=== PATIENT | male | born 1945 | race Caucasian/White ===

== ENCOUNTER 2018-10-31 15:02 | Outpatient (CLI) | payer MEDICARE ==
--- NOTE | 2018-10-31 15:21 | RAD ---
EXAM: Chest Two Views 10/31/2018 3:18 PM HISTORY: Dyspnea COMPARISON: Prior exam dated 05/14/2012 FINDINGS: Heart: Cardiomegaly is stable. There is been interval post-CABG change. Pulmonary vessels: Normal. Costophrenic angles: Clear. Lungs: Chronic lung changes are stable. No confluent airspace opacity is evident. Pneumothorax: None. Osseous structures:No acute osseous abnormality. There is scattered degenerative and osteoarthritic c hange present. Additional findings: None. IMPRESSION: Stable mild cardiomegaly. Post-CABG change. No definite acute cardiac pulmonary abnormality.
== END 2018-10-31 15:03 | disposition home or self-care (01) ==
LOC: RAD 15:02
PROVIDERS: ATTEND Internal Medicine Pulmonary Disease
DX: R06.00 Dyspnea, unspecified (principal); I51.7 Cardiomegaly; Z95.1 Presence of aortocoronary bypass graft
CPT/HCPCS: 71046

== ENCOUNTER 2019-02-20 06:48 | Outpatient (CLI) | payer MEDICARE ==
[2019-02-20 13:08] LABS: Hemoglobin 13.8 g/dL (14.0-18.0); Mean Corpuscular HGB CONC 32.8 g/dL (32.0-36.0); Mean Corpuscular Hemoglobin 27.3 pg (27.0-31.0); Mean Corpuscular Volume 83.3 fL (78.0-98.0); Mean Platelet Volume 7.4 fL (7.4-10.4); Platelet Count 290 thou/uL (130-400); RBC Distribution Width 14.4 % (11.5-14.5); Red Blood Cell (RBC) Count 5.04 mill/uL (4.70-6.10); White Blood Cell (WBC) Count 9.4 thou/uL (4.8-10.8)
[2019-02-20 13:15] LABS: Prothrombin Time 13.6 SEC (12.0-14.7)
[2019-02-20 13:16] LABS: PTT 31.3 SEC (22.9-36.1)
[2019-02-20 13:23] LABS: Bacteria/HPF None Seen HPF (None Seen); Bilirubin Negative (Negative); Blood, Urine Negative (Negative); Clarity Clear (Clear); Glucose, Urine (Dipstick) Normal (Negative); Leukocyte Negative Leu/uL (Negative); Nitrite Negative (Negative); Protein, Urine (Dipstick) Negative (Neg-Trace); RBC/HPF 0-3 HPF (0-3); Squamous Epithelial 0-3 HPF (0-3); Urobilinogen Normal mg/dL (Less than 2); WBC/HPF 0-3 HPF (0-3)
[2019-02-20 13:34] LABS: Anion Gap 11 mmol/L (10-20); BUN (Urea Nitrogen) 22 mg/dL (8.4-25.7); Calc. Creatinine Clearance 0 mL/min (70-130); Calcium 9.2 mg/dL (7.8-10.44); Carbon Dioxide 28 mmol/L (23-31); Chloride 105 mmol/L (98-107); Estimated GFR-MDRD 86; Glucose 77 mg/dL (83-110); Potassium 4.5 mmol/L (3.5-5.1); Sodium 139 mmol/L (136-145)
== END 2019-02-20 06:49 | disposition home or self-care (01) ==
LOC: LABBT 06:48
PROVIDERS: ATTEND Urology
DX: Z01.818 Encounter for other preprocedural examination (principal); Z12.5 Encounter for screening for malignant neoplasm of prostate; C67.9 Malignant neoplasm of bladder, unspecified; N40.1 Benign prostatic hyperplasia with lower urinary tract symptoms; R35.1 Nocturia; Z87.891 Personal history of nicotine dependence; Z87.448 Personal history of other diseases of urinary system; Z87.898 Personal history of other specified conditions
CPT/HCPCS: 80048; 81001; 85027; 85610; 85730; 87086; 88121; 93005; 93010

== ENCOUNTER 2019-03-06 06:32 | Day surgery (SDC) | payer MEDICARE ==
[2019-02-20 11:52] VITALS: BMI 32.5
[2019-03-06] MEDS ORDERED: Levofloxacin 500 mg/D5W 100 ml Premix Bag ONE (07:07)
[2019-03-06] MEDS ORDERED: Fentanyl 100 MCG/2 ML VIAL ONE (08:50)
[2019-03-06] MEDS ORDERED: Ketamine 50 MG/ML (10ML VIAL) ONE (08:50)
[2019-03-06] MEDS ORDERED: Propofol 500 MG/50 ML VIAL ONE (08:50)
[2019-03-06] MEDS ORDERED: Midazolam HCl 2 mg/2 ml Vial ONE (08:50)
--- NOTE | 2019-03-06 11:56 | OP ---
DATE OF PROCEDURE: 03/06/2019 PREOPERATIVE DIAGNOSES: 1. A 73-year-old male with history of urinary retention, benign prostatic hyperplasia. 2. History of bladder cancer in remission. 3. Urethral stricture. POSTOPERATIVE DIAGNOSES: 1. A 73-year-old male with history of urinary retention, benign prostatic hyperplasia. 2. History of bladder cancer in remission. 3. Urethral stricture. PROCEDURE PERFORMED: Cystoscopy, direct vision internal urethrotomy of bulbar urethral stricture, UroLift urethral implant x4, 18-Ukrainian 10 mL De La Garza catheter placement. ANESTHESIA: TIVA. COMPLICATIONS: None apparent. DISPOSITION: To recovery room in stable condition. INDICATIONS FOR PROCEDURE AND HISTORY: Mr. Jorge is a pleasant 73-year-old male previously followed by Dr. Lopez, who transferred care. He has history of superficial bladder cancer, currently in remission on annual surveillance cystoscopy, BPH, urethral stricture. His last cystoscopy demonstrated no evidence of bladder tumor recurrence, cytology negative. He had a wide caliber, 16/18- Ukrainian bulbar stricture with BPH, bilobar hyperplasia. He desired to proceed with UroLift, cardiac clearance is in chart. I advised the patient to continue with baby aspirin as has a history of coronary artery disease. He presents today for the above procedure. Risks and complications including, but not limited to bleeding, pain , infection, sepsis, stricture formation, recurrent, chronic pain, injury to adjacent organs, migration of UroLift implant resulting in incrustation, stone nidus reviewed. Questions encouraged and answered, and alternate of the treatment including observation reviewed and desired to proceed with surgical intervention. DESCRIPTION OF PROCEDURE: After an informed consent was signed, the patient was taken to the operating room, placed in a dorsal lithotomy position with the genital area prepped and draped in the usual surgical sterile fashion. Broad-spectrum antibiotics were provided. We performed a cystoscopy with a 21 and a 25-Ukrainian cystoscope to dilate the urethral stricture. At the level of bulbar stricture, there were two strictures, wide caliber in the proximal penile, and a bulbar stricture about 16-Ukrainian. I was able to bypass this with a 0.35 Sensor wire to the level of the bladder. On cystoscopy today, his urethral stricture caliber appeared to be about 12-Ukrainian caliber. Therefore, I did place a wire into the level of the bladder, and we followed the wire into the level of the bladder. There was some passive dilatation; however, an annular narrowing of the bulbar stricture persisted. I was able to pass the scope in and out without significant issues. The prostatic urethra was staged and bladder demonstrated no significant findings, no bladder tumor or lesions of concern. We performed a cystoscopy with the 30- and a 70- degree lens. The UOs were identified about 4 to 5 mm proximal to the bladder neck. At this time, we delivered the UroLift device with a 20-Ukrainian 0-degree lens. Using UroLift delivery device, we placed the first implant on the left side of the body. As he has a short urethra, we were able to deploy at the level of the verumontanum about 1.5 cm proximal to the bladder neck demonstrating with resolution of the lateral lobe obstructing. This was repeated on the contralateral side. Caps were released appropriately. Restaging demonstrated that there was room for further deployment. Therefore, we stacked two more implants as his urethra was short, which demonstrated excellent opening and resolution of his obstructing lobes. We repeated the cystoscopy with the 30- and a 70-degree lens, which demonstrated no foreign body in the bladder neck or bladder mucosa. At this time, I re-staged his urethral stricture. An annular narrowing persisted at the bulbar urethra. Therefore, decision was made to perform DVIU. A 21-Ukrainian ACMI scope was passed. Direct vision internal urethrotomy cold knife was utilized to cut the stricture at the 12 o'clock position. It appeared to be somewhat dense. Therefore, I did make further swipes releasing the annular band. Subsequently, I was able to pass an 18-Ukrainian regular De La Garza catheter without a guidewire assist, which passed without significant issues at the level of the bladder, 10 mL was insufflated. Clear urine output was noted and tolerated the procedure well. As I treated his urethral stricture concomitantly, he will be discharged with indwelling De La Garza catheter and will return to clinic next week for a voiding trial. He is discharged with ciprofloxacin 1 p.o. b.i.d. x8 days and Azo [id number] p.r.n. I informed the patient that he may continue his baby aspirin. As there is no cancer recurrence, we will continue to survey him annually for his bladder cancer. Job ID: [id number] [facility]
[2019-03-06] MEDS ORDERED: PROPOFOL 200 MG/20 ML VIAL ONE (12:28)
[2019-03-06] MEDS ORDERED: Oxybutynin 5 MG TAB ONE (15:25)
[2019-03-06] MEDS ORDERED: Phenazopyridine HCl 97.5 MG TABLET ONE (15:26)
== END 2019-03-07 12:55 | disposition home or self-care (01) ==
LOC: SDC 06:32
PROVIDERS: ATTEND Urology
PROC: 0T7D8DZ Dilation of Urethra with Intraluminal Device, Via Natural or Artificial Opening Endoscopic (ICD-10-PCS; principal; 2019-03-06)
PROC: 0TND8ZZ Release Urethra, Via Natural or Artificial Opening Endoscopic (ICD-10-PCS; 2019-03-06)
DX: N40.1 Benign prostatic hyperplasia with lower urinary tract symptoms (principal); R33.8 Other retention of urine; N35.912 Unspecified bulbous urethral stricture, male; F41.9 Anxiety disorder, unspecified; J44.9 Chronic obstructive pulmonary disease, unspecified; F43.10 Post-traumatic stress disorder, unspecified; M19.90 Unspecified osteoarthritis, unspecified site; G47.33 Obstructive sleep apnea (adult) (pediatric); Z85.46 Personal history of malignant neoplasm of prostate; Z79.82 Long term (current) use of aspirin; Z79.899 Other long term (current) drug therapy; Z88.0 Allergy status to penicillin
CPT/HCPCS: 52276; C1769; C1889; C9740; J1956; J2250; J2704; J3010

== ENCOUNTER 2019-03-19 15:05 | Inpatient (IN) | payer MEDICARE ==
[2019-03-19] MEDS ORDERED: methylPREDNISolone Sod Succ/PF 125 MG/2 ML VIAL ONE (15:21)
[2019-03-19] MEDS ORDERED: Magnesium 2 GM/50 ML BAG (IN WATER) ONE (15:21)
[2019-03-19] MEDS ORDERED: Albuterol Sulfate 2.5 mg/3 ml Neb ONE ×2 (15:34→16:48)
[2019-03-19] MEDS ORDERED: Albuterol Sulfate 1.25 MG/3 ML NEB ONE (15:34)
[2019-03-19 15:43] LABS: Hemoglobin 14.7 g/dL (14.0-18.0); Mean Corpuscular HGB CONC 33.5 g/dL (32.0-36.0); Mean Corpuscular Hemoglobin 28.4 pg (27.0-31.0); Mean Corpuscular Volume 84.9 fL (78.0-98.0); Mean Platelet Volume 7.1 fL (7.4-10.4); Platelet Count 440 thou/uL (130-400); Red Blood Cell (RBC) Count 5.19 mill/uL (4.70-6.10); White Blood Cell (WBC) Count 19.2 thou/uL (4.8-10.8)
[2019-03-19] MEDS ORDERED: cefTRIAXone\\ROCEPHIN 1 GM VIAL ONE (15:59)
[2019-03-19 16:03] LABS: Actual Bicarbonate (HCO3a) 27.4 mEq/L (22-28); Analyzer IN Cardio ER; CO2 Tension 41.1 mmHg (35.0-45.0); Calcium, Ionized 1.14 mmol/L (1.12-1.30); Carboxyhemoglobin (COHb) 1.7 gm% (0.0-3.0); Hemoglobin (Hb) 14.5 g/dL (14.0-18.0); O2 Tension (PaO2) 97.5 mmHg (> 70.0); Potassium - ABG Lab 3.39 mmol/L (3.70-5.30); pH, Arterial 7.44 (7.35-7.45)
[2019-03-19 16:04] LABS: ALT (SGPT) 21 U/L (8-55); AST (SGOT) 21 U/L (5-34); Albumin 3.6 g/dL (3.4-4.8); Alkaline Phosphatase 140 U/L (40-150); Anion Gap 13 mmol/L (10-20); BUN (Urea Nitrogen) 17 mg/dL (8.4-25.7); Bilirubin, Total 0.7 mg/dL (0.2-1.2); CK (CPK) 54 U/L (30-200); Calc. Creatinine Clearance 0 mL/min (70-130); Calcium 9.1 mg/dL (7.8-10.44); Carbon Dioxide 28 mmol/L (23-31); Chloride 97 mmol/L (98-107); Estimated GFR-MDRD 77; Globulin 3.3 g/dL (2.4-3.5); Glucose 109 mg/dL (83-110); Potassium 3.3 mmol/L (3.5-5.1); Protein, Total 6.9 g/dL (5.8-8.1); Sodium 135 mmol/L (136-145)
[2019-03-19 16:06] LABS: Puncture Site LRA
[2019-03-19 16:07] LABS: Band 15 % (5-11); Eosinophils 2 % (0-10); Lymphocytes 7 % (21-51); MDiff Complete? YES; Metamyelocyte 1 % (0-0); Monocytes 10 % (0-10); Myelocyte 1 % (0-0); Neutrophil 63 % (42-75); Platelet Morphology Comment Appears Increased; RBC Morphology Normal; Reactive Lymphocytes 1 % (0-10)
[2019-03-19 16:07] LABS: ALV-art Gradient 50.765 (0-20)
--- NOTE | 2019-03-19 16:07 | RAD ---
EXAM: Single view of the chest HISTORY: Shortness of breath COMPARISON: 03/17/2014 FINDINGS: Single view of the chest shows a normal sized cardiomediastinal silhouette. The patient is status post sternotomy. There is no evidence of consolidation, mass, or pleural effusion. The bones are unremarkable. IMPRESSION: No evidence of acute cardiopulmonary disease
[2019-03-19] MEDS ORDERED: Potassium Chloride 20 MEQ TAB ONE (16:26)
[2019-03-19] MEDS ORDERED: Azithromycin 500 MG VIAL ONE (16:26)
[2019-03-19] MEDS ORDERED: Acetaminophen 650 MG Suppository PR PRN (17:12)
[2019-03-19] MEDS ORDERED: Bisacodyl 5 MG TAB PO PRN (17:12)
[2019-03-19] MEDS ORDERED: Melatonin 3 MG TAB PO PRN (17:37)
--- NOTE | 2019-03-19 18:06 | RAD ---
TWO VIEWS OF THE ABDOMEN: 03/19/19 COMPARISON: None. HISTORY: Abdominal pain. FINDINGS: Two views of the abdomen shows multiple air fluid levels seen on upright examination. Air is seen to the level of the rectum. No free air is seen on upright examination. IMPRESSION: Multiple air fluid levels may represent small bowel obstruction. POS: [facility]
--- NOTE | 2019-03-19 18:16 | HP ---
PRIMARY CARE PROVIDER: Dr. Rajan Rodarte. CHIEF COMPLAINT: Shortness of breath. HISTORY OF PRESENT ILLNESS: Mr. Jorge is a pleasant 73-year-old gentleman, who was seen at [facility] on March 19, 2019. He had cystoscopy on March 06. He reports doing well until today afternoon. Today around noon time, he had nap. He woke up from the nap short of breath. He also reports cough that is productive of a morrissey sputum. He denies having any chest pain. He denies any fevers. He denies any nausea, vomiting, or diarrhea. He reports sensation of abdominal bloating over the last 2 days. His last bowel movement was today morning. He also reports abdominal discomfort across his lower abdomen, bandlike, 7/10 in intensity, improved with acetaminophen, no known relieving factors, nonradiating. He went to see his primary care provider. The shortness of breath reportedly lasted an hour. At his primary care provider's office, he was found to be hypoxic with oxygen saturation of 88%. He was, therefore, sent to the emergency room. REVIEW OF SYSTEMS: All systems were reviewed and found to be negative except for the pertinent positives mentioned above. 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 PAST SURGICAL HISTORY: Right ear surgery, bladder surgery, UroLift, and quadruple bypass in July 2018. PSYCHIATRIC HISTORY: Depression and posttraumatic stress disorder. SOCIAL HISTORY: No history of tobacco use, alcohol use, or recreational drug use. CODE STATUS: I discussed his code status. He is full code. ALLERGIES: NITROFURANTOIN, OXYBUTYNIN, AND PENICILLIN G SODIUM. CURRENT MEDICATIONS: 1. Albuterol p.r.n. 2. Aspirin 81 mg daily. 3. Fluocinonide gel topically two times a day. 4. Ipratropium nebulizer as needed. 5. DuoNeb as needed. 6. Lasix 40 mg daily. 7. Melatonin 3 mg at bedtime. 8. Ranitidine 150 mg two times a day. 9. Tamsulosin 0.4 mg at bedtime. FAMILY HISTORY: Significant for myocardial infarction in his brother. PHYSICAL EXAMINATION: GENERAL: On examination, Mr. Jorge is awake and alert, not in acute distress. VITAL SIGNS: Blood pressure is 137/70, pulse 72, respiratory rate 26, and oxygen saturation 100% on 2 L of oxygen. He is afebrile. EYES: No scleral icterus. No conjunctival pallor. ENT: Moist mucosal membranes. No oropharyngeal erythema or exudates. RESPIRATORY: Accessory muscles of breathing are active. Chest wall movements are symmetric bilaterally. Lung examination reveals diffuse expiratory wheeze. CARDIOVASCULAR: S1 and S2 are heard, regular. Peripheral pulses palpable. No carotid bruit. No pericardial rub. ABDOMEN: Soft, distended, and nontender. Bowel sounds are heard. NEUROLOGIC: Cranial nerves 2 through 12 are intact. Deep tendon reflexes 2+. MUSCULOSKELETAL: The patient is moving all 4 extremities. SKIN: Trace lower extremity edema. LYMPHATIC: No cervical lymphadenopathy. PSYCHIATRIC: Normal mood. Normal affect. The patient is oriented to person and place, not to time. LABORATORY DATA: Mr. Jorge' labs and investigations were reviewed. I reviewed his electrocardiogram, which shows normal sinus rhythm, no ST changes to suggest an acute coronary syndrome. He has incomplete right bundle-branch block. I also reviewed his chest x-ray, which does not show any pulmonary infiltrates. He has leukocytosis with 19,200 white cells, of which 63% are neutrophils. He also has bandemia, with 15% bands. Hemoglobin is normal. Platelet count is elevated at 440,000. He has mild hyponatremia with sodium 135, mild hypokalemia with potassium 3.3, normal creatinine and unremarkable LFTs. Arterial blood gases show pH 7.44, pCO2 of 41, and pO2 of 97.5 on BiPAP with FiO2 of 28. ASSESSMENT AND PLAN: Mr. Jorge is a pleasant 73-year-old gentleman, who was seen at [facility] on March 19, 2019. His problem list includes: 1. Sepsis: Mr. Jorge is presenting with sepsis, most likely secondary to acute bronchitis. He will be admitted to the hospital for further management. He was treated with BiPAP in the emergency room. He will be admitted to the [facility] for now. 2. Acute on chronic hypoxic respiratory failure: This is improving, most likely secondary to acute bronchitis. 3. Acute bronchitis: Chest x-ray does not show any evidence of pneumonia. Given his history and presentation, he will be treated with intravenous antibiotics and steroids. He has already received intravenous ceftriaxone and azithromycin, which I will continue. 4. Hyponatremia: Mild, likely asymptomatic. 5. Hypokalemia: Replace potassium and recheck. 6. Benign prostate hypertrophy: Continue tamsulosin. 7. Coronary artery disease: This appears to be stable. There was notation in the emergency room that the patient had chest pain at some point. On further questioning, both the patient and deny that he ever had chest pain. Many thanks for allowing me to participate in your patient's care. Please feel free to contact me with any questions or concerns. LEVEL OF RISK: High. LEVEL OF COMPLEXITY: High. Job ID: [id number]
[2019-03-19] MEDS ORDERED: Ondansetron ODT 4 MG TAB SL PRN (19:22)
[2019-03-19] MEDS ORDERED: Lactated Ringer's 1,000 ML IV SCH (19:22)
[2019-03-19] MEDS ORDERED: Ondansetron PF 4 MG/2 ML Vial IVP PRN (19:22)
[2019-03-19] MEDS: Azithromycin 500 MG in Sodium Chloride 0.9% 250 ML 250 ML IVPB SCH (19:46)
[2019-03-19] MEDS: cefTRIAXone\\ROCEPHIN 1 GM in Sodium Chloride 0.9% 100 ML IVPB SCH (19:46)
[2019-03-19] MEDS: methylPREDNISolone Sod Succ 40 MG VIAL IVP SCH ×2 (19:47→23:45)
[2019-03-19 19:52] VITALS: BMI 27.8
[2019-03-19] MEDS: Famotidine 20 MG TAB PO SCH (20:14)
[2019-03-19] MEDS: Tamsulosin HCl 0.4 MG CAP PO SCH (20:14)
[2019-03-20] MEDS: methylPREDNISolone Sod Succ 40 MG VIAL IVP SCH ×3 (05:17→18:02)
[2019-03-20 06:43] LABS: Band 3 % (5-11); Hemoglobin 13.4 g/dL (14.0-18.0); Hypochromia SLIGHT = 6-15 cells (100X) (0-5/hpf); Lymphocytes 4 % (21-51); MDiff Complete? YES; Mean Corpuscular HGB CONC 33.6 g/dL (32.0-36.0); Mean Corpuscular Hemoglobin 28.7 pg (27.0-31.0); Mean Corpuscular Volume 85.4 fL (78.0-98.0); Mean Platelet Volume 7.1 fL (7.4-10.4); Neutrophil 93 % (42-75); Platelet Count 413 thou/uL (130-400); Platelet Morphology Comment Appears Increased; RBC Distribution Width 14.1 % (11.5-14.5); Red Blood Cell (RBC) Count 4.67 mill/uL (4.70-6.10); White Blood Cell (WBC) Count 16.1 thou/uL (4.8-10.8)
[2019-03-20 06:47] LABS: Anion Gap 14 mmol/L (10-20); BUN (Urea Nitrogen) 15 mg/dL (8.4-25.7); Calc. Creatinine Clearance 111 mL/min (70-130); Calcium 8.6 mg/dL (7.8-10.44); Carbon Dioxide 27 mmol/L (23-31); Chloride 102 mmol/L (98-107); Estimated GFR-MDRD Greater than 90; Glucose 124 mg/dL (83-110); Potassium 4.1 mmol/L (3.5-5.1); Sodium 139 mmol/L (136-145)
[2019-03-20] MEDS: Enoxaparin Sodium 40 MG/0.4 ML SYRINGE SC SCH (09:04)
[2019-03-20] MEDS: Aspirin 81 mg Enteric Coated Tablet PO SCH (09:04)
[2019-03-20] MEDS: Famotidine 20 MG TAB PO SCH ×2 (09:04→20:53)
--- NOTE | 2019-03-20 11:55 | CON ---
DATE OF CONSULTATION: 03/20/2019 REASON FOR CONSULTATION: COPD exacerbation. CONSULTING PHYSICIAN: Malik Hwang MD HISTORY OF PRESENT ILLNESS: The patient is a pleasant 73-year-old male, who became ill yesterday with increasing shortness of breath, wheezing, cough, and productive sputum. He as a patient of Dr. Powell, he has had COPD for many years. He wears oxygen 2 L nasal cannula intermittently at home. He is also prednisone dependent taking 5 mg a day of that. He was on BiPAP briefly last night. He says he feels good enough today to go home. PAST MEDICAL HISTORY: 1. Chronic obstructive pulmonary disease. 2. Alzheimer dementia. 3. 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 4. Peripheral neuropathy. PAST SURGICAL HISTORY: 1. Right ear surgery. 2. Bladder surgery. 3. Coronary artery bypass grafting surgery. PSYCHIATRIC HISTORY: Remarkable for depression and PTSD. SOCIAL HISTORY: Smoked up until the 1960s. Does not consume alcohol. Does not use illicit drugs. ALLERGIES: NITROFURANTOIN, OXYBUTYNIN, AND PENICILLIN. MEDICATIONS: Prior to admission; 1. Albuterol. 2. Aspirin. 3. Fluocinonide gel. 4. Ipratropium nebulization solution. 5. Lasix. 6. Melatonin. 7. Ranitidine. 8. Tamsulosin. FAMILY MEDICAL HISTORY: Remarkable for heart disease. REVIEW OF SYSTEMS: Twelve-point review of systems is otherwise negative. PHYSICAL EXAMINATION: VITAL SIGNS: Temperature 97.7, pulse 76, respirations 20, and O2 saturation 94% on 4. GENERAL: He is awake, alert, and in no distress. HEENT: Unremarkable except for cutaneous lesions on his face that look almost psoriatic in nature. NECK: No adenopathy or JVD. LUNGS: Diffuse expiratory wheezing bilaterally with slightly prolonged expiratory phase. CARDIAC: S1 and S2. Regular. ABDOMEN: Soft and nontender. EXTREMITIES: No edema. LABORATORY DATA: White blood cell count 16, hematocrit 39.8, and platelet count 413 with 93% neutrophils and 3% bands. A pH of 7.44, pCO2 of 41, and pO2 of 97. Sodium 138, potassium 4.1, chloride 102, CO2 of 27, BUN 15, creatinine 0.7, and glucose 124. ASSESSMENT: 1. Chronic obstructive pulmonary disease with exacerbation. 2. Other medical problems listed above. PLAN: He is off the BiPAP, doing well. Based on that, I think he can be sent up to the floor and continue therapy with steroids, antibiotics, and nebulization treatments. I would hold him in the hospital for at least 24 more hours. Job ID: [id number]
[2019-03-20] MEDS: cefTRIAXone\\ROCEPHIN 1 GM in Sodium Chloride 0.9% 100 ML IVPB SCH (17:22)
[2019-03-20] MEDS: Acetaminophen 325 MG TAB PO PRN (17:22)
[2019-03-20] MEDS: Azithromycin 500 MG in Sodium Chloride 0.9% 250 ML 250 ML IVPB SCH (18:02)
--- NOTE | 2019-03-20 18:15 | PDOC.HOSPP ---
- Subjective Encounter Date: 03/20/19 Encounter Time: 10:00 Subjective: Pt seen for followup re; COPD exacerbation. Feels better. - Objective Vital Signs & Weight: Vital Signs (12 hours) Temp Pulse Resp Pulse Ox 03/20/19 15:31 98.0 F 03/20/19 14:33 70 20 91 L 03/20/19 11:14 98.1 F 03/20/19 10:43 71 20 93 L 03/20/19 08:16 76 20 94 L 03/20/19 07:31 97.7 F 03/20/19 07:15 92 L Weight Weight 203 lb Most Recent Monitor Data Heart Rate from ECG 75 NIBP 117/55 NIBP BP-Mean 75 Respiration from ECG 26 SpO2 90 I&O: 03/19/19 03/20/19 03/21/19 06:59 06:59 06:59 Intake Total 1480 Output Total 1500 Balance -20 Result Diagrams: 03/20/19 05:25 03/20/19 05:25 Additional Labs: Labs and MARs reviewed by me EKG Reviewed by me: Yes (Tele: NSR) Hospitalist ROS - Review of Systems Respiratory: reports: cough, dry, SOB with excertion. denies: shortness of breath, hemoptysis, pleuritic pain, sputum, wheezing Cardiovascular: denies: chest pain, palpitations, orthopnea, paroxysmal noc. dyspnea, edema, light headedness - Medication Medications: Active Medications Generic Name Dose Route Start Last Admin Trade Name Freq PRN Reason Stop Dose Admin Acetaminophen 650 mg 03/19/19 17:12 03/20/19 17:22 Tylenol PO 650 mg Q4H PRN Administration Headache/Fever/Mild Pain (1-3) Albuterol/Ipratropium 3 ml 03/20/19 10:30 03/20/19 14:33 Duoneb NEB 3 ml [id number] RONY Administration Aspirin 81 mg 03/20/19 09:00 03/20/19 09:04 Ecotrin PO 81 mg DAILY RONY Administration Enoxaparin Sodium 40 mg 03/20/19 09:00 03/20/19 09:04 Lovenox SC 40 mg 0900 RONY Administration Famotidine 20 mg 03/19/19 21:00 03/20/19 09:04 Pepcid PO 20 mg BID RONY Administration Azithromycin 500 mg/ Sodium 250 mls @ 250 mls/hr 03/19/19 18:00 03/20/19 18: 02 Chloride IVPB 250 mls 1800 RONY Administration Ceftriaxone Sodium 1 gm/ 100 mls @ 200 mls/hr 03/19/19 17:15 03/20/19 17:22 Sodium Chloride IVPB 100 mls Q24HR RONY Administration Methylprednisolone Sodium Succinate 40 mg 03/19/19 18:00 03/20/19 18:02 Solu-Medrol IVP 40 mg Q6HR RONY Administration Sodium Chloride 10 ml 03/19/19 21:00 03/20/19 09:05 Flush - Normal Saline IVF 10 ml Q12HR RONY Administration Tamsulosin HCl 0.4 mg 03/19/19 21:00 03/19/19 20:14 Flomax PO 0.4 mg HS RONY Administration - Exam General Appearance: NAD Eye: anicteric sclera ENT: moist mucosa Neck: supple, no JVD Heart: RRR Respiratory: CTAB, no wheezes Gastrointestinal: soft, non-tender Extremities: no cyanosis Neurological: no weakness Psychiatric: normal affect, normal behavior Hosp A/P (1) COPD exacerbation Code(s): J44.1 - CHRONIC OBSTRUCTIVE PULMONARY DISEASE W (ACUTE) EXACERBATION Status: Acute (2) Acute bronchitis Code(s): J20.9 - ACUTE BRONCHITIS, UNSPECIFIED Status: Acute (3) Dementia Code(s): F03.90 - UNSPECIFIED DEMENTIA WITHOUT BEHAVIORAL DISTURBANCE Status: Chronic (4) Sepsis Code(s): A41.9 - SEPSIS, UNSPECIFIED ORGANISM Status: Resolved (5) Acute and chronic respiratory failure with hypoxia Code(s): J96.21 - ACUTE AND CHRONIC RESPIRATORY FAILURE WITH HYPOXIA Status: Resolved (6) Hyponatremia Code(s): E87.1 - HYPO-OSMOLALITY AND HYPONATREMIA Status: Resolved - Plan continue antibiotics, PT/OT, out of bed/ambulate continue IV ceftriaxone and azithromycin. Continue steroids and bronchodilators. Pt is clinically improving. Transfer to medical floor. Dementia stable. .
[2019-03-20] MEDS: Arformoterol 15 MCG/2 ML NEB NEB SCH (18:17)
[2019-03-20] MEDS: Budesonide 0.5 MG/2 ML NEB INH SCH (18:17)
[2019-03-20] MEDS: Tamsulosin HCl 0.4 MG CAP PO SCH (20:54)
[2019-03-21] MEDS: methylPREDNISolone Sod Succ 40 MG VIAL IVP SCH ×4 (00:09→18:22)
[2019-03-21] MEDS: Cepastat Lozenges 1 LOZ PO PRN ×2 (00:11→13:09)
[2019-03-21] MEDS ORDERED: Furosemide 40 MG/4 ML VIAL SLOW IVP SCH (05:45)
[2019-03-21] MEDS: Arformoterol 15 MCG/2 ML NEB NEB SCH ×2 (06:26→17:53)
[2019-03-21] MEDS: Budesonide 0.5 MG/2 ML NEB INH SCH ×2 (06:28→17:53)
[2019-03-21 07:12] LABS: Hemoglobin 14.2 g/dL (14.0-18.0); Mean Corpuscular HGB CONC 33.2 g/dL (32.0-36.0); Mean Corpuscular Hemoglobin 28.1 pg (27.0-31.0); Mean Corpuscular Volume 84.6 fL (78.0-98.0); Platelet Count 532 thou/uL (130-400); RBC Distribution Width 14.2 % (11.5-14.5); Red Blood Cell (RBC) Count 5.04 mill/uL (4.70-6.10); White Blood Cell (WBC) Count 27.9 thou/uL (4.8-10.8)
[2019-03-21 07:26] LABS: Anion Gap 15 mmol/L (10-20); BUN (Urea Nitrogen) 22 mg/dL (8.4-25.7); Calc. Creatinine Clearance 91 mL/min (70-130); Carbon Dioxide 27 mmol/L (23-31); Chloride 102 mmol/L (98-107); Estimated GFR-MDRD 77; Glucose 124 mg/dL (83-110); Potassium 4.1 mmol/L (3.5-5.1); Sodium 140 mmol/L (136-145)
[2019-03-21 07:36] LABS: Band 19 % (5-11); Lymphocytes 4 % (21-51); MDiff Complete? YES; Monocytes 5 % (0-10); Neutrophil 72 % (42-75); Platelet Morphology Comment Appears Increased; Polychromasia SLIGHT = 2-3 cells (100X) (0-2/hpf)
[2019-03-21] MEDS: Aspirin 81 mg Enteric Coated Tablet PO SCH (09:25)
[2019-03-21] MEDS: Famotidine 20 MG TAB PO SCH ×2 (09:25→20:01)
[2019-03-21] MEDS: Enoxaparin Sodium 40 MG/0.4 ML SYRINGE SC SCH (09:25)
--- NOTE | 2019-03-21 11:03 | PRG ---
DATE OF SERVICE: 03/21/2019 SUBJECTIVE: This morning, he is doing better, less short of breath, less cough, less wheezing. OBJECTIVE: VITAL SIGNS: Temperature 98, pulse 97, respirations 20, and saturations are 90% on 3 L, and blood pressure 184/77. CHEST: Minimal wheezing. CARDIAC: Normal S1 and S2. No gallops. DIAGNOSTIC STUDIES: Chest x-ray shows no acute infiltrates. LABORATORY DATA: White count is 27,000. ASSESSMENT: Chronic obstructive pulmonary disease with exacerbation, bronchitis, and leukocytosis. PLAN: Continue neb treatments, supportive care. We will follow. Job ID: [id number]
[2019-03-21] MEDS: Acetaminophen 325 MG TAB PO PRN (11:08)
--- NOTE | 2019-03-21 15:35 | PDOC.HOSPP ---
- Subjective Encounter Date: 03/21/19 Encounter Time: 09:40 Subjective: Pt seen for followup re: COPD exacerbation. Feels better. - Objective Vital Signs & Weight: Vital Signs (12 hours) Temp Pulse Resp BP BP Pulse Ox 03/21/19 14:08 70 16 94 L 03/21/19 13:08 76 20 94 L 03/21/19 11:11 98.0 F 78 18 129/67 91 L 03/21/19 10:25 94 L 03/21/19 10:22 80 16 94 L 03/21/19 07:18 98.3 F 97 20 184/77 H 92 L 03/21/19 06:28 89 18 93 L 03/21/19 06:26 89 18 93 L 03/21/19 04:59 89 22 H 03/21/19 04:00 98.1 F 89 21 H 160/76 H 94 L Weight Weight 203 lb Most Recent Monitor Data Heart Rate from ECG 79 NIBP 129/62 NIBP BP-Mean 84 Respiration from ECG 21 SpO2 94 I&O: 03/20/19 03/21/19 03/22/19 06:59 06:59 06:59 Intake Total 1480 Output Total 1500 450 Balance -20 -450 Result Diagrams: 03/21/19 06:57 03/21/19 06:57 Additional Labs: Labs and MARs reviewed by mn Hospitalist ROS - Review of Systems Respiratory: reports: cough, dry. denies: shortness of breath, hemoptysis, SOB with excertion, pleuritic pain, sputum, wheezing Cardiovascular: denies: chest pain, palpitations, orthopnea, paroxysmal noc. dyspnea, edema, light headedness - Medication Medications: Active Medications Generic Name Dose Route Start Last Admin Trade Name Freq PRN Reason Stop Dose Admin Acetaminophen 650 mg 03/19/19 17:12 03/21/19 11:08 Tylenol PO 650 mg Q4H PRN Administration Headache/Fever/Mild Pain (1-3) Albuterol/Ipratropium 3 ml 03/20/19 10:30 03/21/19 14:08 Duoneb NEB 3 ml [id number] RONY Administration Arformoterol Tartrate 15 mcg 03/20/19 18:30 03/21/19 06:26 Brovana NEB 15 mcg BID-RT RONY Administration Aspirin 81 mg 03/20/19 09:00 03/21/19 09:25 Ecotrin PO 81 mg DAILY RONY Administration Budesonide 0.5 mg 03/20/19 18:30 03/21/19 06:28 Pulmicort Neb Solution INH 0.5 mg BID-RT RONY Administration Enoxaparin Sodium 40 mg 03/20/19 09:00 03/21/19 09:25 Lovenox SC 40 mg 0900 RONY Administration Famotidine 20 mg 03/19/19 21:00 03/21/19 09:25 Pepcid PO 20 mg BID RONY Administration Azithromycin 500 mg/ Sodium 250 mls @ 250 mls/hr 03/19/19 18:00 03/20/19 18: 02 Chloride IVPB 250 mls 1800 RONY Administration Ceftriaxone Sodium 1 gm/ 100 mls @ 200 mls/hr 03/19/19 17:15 03/20/19 17:22 Sodium Chloride IVPB 100 mls Q24HR RONY Administration Methylprednisolone Sodium Succinate 40 mg 03/19/19 18:00 03/21/19 11:09 Solu-Medrol IVP 40 mg Q6HR RONY Administration Sodium Chloride 10 ml 03/19/19 21:00 03/21/19 09:25 Flush - Normal Saline IVF 10 ml Q12HR RONY Administration Tamsulosin HCl 0.4 mg 03/19/19 21:00 03/20/19 20:54 Flomax PO 0.4 mg HS RONY Administration Throat Lozenges 1 david 03/20/19 17:18 03/21/19 13:09 Cepastat Lozenges PO 1 david Q2H PRN Administration Sore Throat - Exam General Appearance: NAD Eye: anicteric sclera ENT: moist mucosa Neck: supple Heart: RRR Respiratory: CTAB Gastrointestinal: soft, non-tender Extremities: no cyanosis Skin: normal turgor Psychiatric: normal affect, normal behavior Hosp A/P (1) COPD exacerbation Code(s): J44.1 - CHRONIC OBSTRUCTIVE PULMONARY DISEASE W (ACUTE) EXACERBATION Status: Acute (2) Acute bronchitis Code(s): J20.9 - ACUTE BRONCHITIS, UNSPECIFIED Status: Acute (3) Dementia Code(s): F03.90 - UNSPECIFIED DEMENTIA WITHOUT BEHAVIORAL DISTURBANCE Status: Chronic (4) Sepsis Code(s): A41.9 - SEPSIS, UNSPECIFIED ORGANISM Status: Resolved (5) Acute and chronic respiratory failure with hypoxia Code(s): J96.21 - ACUTE AND CHRONIC RESPIRATORY FAILURE WITH HYPOXIA Status: Resolved (6) Hyponatremia Code(s): E87.1 - HYPO-OSMOLALITY AND HYPONATREMIA Status: Resolved - Plan continue antibiotics, PT/OT, respiratory therapy, out of bed/ambulate Improving. On IV ceftriaxone and azithromycin. On Duonebs and steroids. Dementia stable.
[2019-03-21] MEDS: cefTRIAXone\\ROCEPHIN 1 GM in Sodium Chloride 0.9% 100 ML IVPB SCH (16:47)
[2019-03-21] MEDS: Azithromycin 500 MG in Sodium Chloride 0.9% 250 ML 250 ML IVPB SCH (18:22)
[2019-03-21] MEDS: Tamsulosin HCl 0.4 MG CAP PO SCH (20:01)
[2019-03-22] MEDS: methylPREDNISolone Sod Succ 40 MG VIAL IVP SCH ×3 (00:11→11:00)
[2019-03-22] MEDS: Acetaminophen 325 MG TAB PO PRN (03:34)
[2019-03-22] MEDS: Cepastat Lozenges 1 LOZ PO PRN (03:40)
[2019-03-22 06:37] LABS: #Lymphocytes 0.7 thou/uL (1.20-3.40); #Monocytes 0.5 thou/uL (0.11-0.59); #Neutrophils 17.4 thou/uL (1.40-6.50); %Eosinophils 0.1 % (0.0-10.0); %Lymphocytes 3.7 % (21.0-51.0); %Monocytes 2.7 % (0.0-10.0); %Neutrophils 93.4 % (42.0-75.0); Hemoglobin 12.1 g/dL (14.0-18.0); Mean Corpuscular HGB CONC 33.1 g/dL (32.0-36.0); Mean Corpuscular Hemoglobin 28.3 pg (27.0-31.0); Mean Corpuscular Volume 85.4 fL (78.0-98.0); Platelet Count 433 thou/uL (130-400); Red Blood Cell (RBC) Count 4.28 mill/uL (4.70-6.10); White Blood Cell (WBC) Count 18.7 thou/uL (4.8-10.8)
[2019-03-22] MEDS: Arformoterol 15 MCG/2 ML NEB NEB SCH (06:55)
[2019-03-22] MEDS: Budesonide 0.5 MG/2 ML NEB INH SCH (06:55)
[2019-03-22 07:03] LABS: Anion Gap 13 mmol/L (10-20); BUN (Urea Nitrogen) 22 mg/dL (8.4-25.7); Calc. Creatinine Clearance 93 mL/min (70-130); Calcium 8.3 mg/dL (7.8-10.44); Carbon Dioxide 27 mmol/L (23-31); Chloride 105 mmol/L (98-107); Estimated GFR-MDRD 79; Glucose 130 mg/dL (83-110); Potassium 3.9 mmol/L (3.5-5.1); Sodium 141 mmol/L (136-145)
[2019-03-22 07:46] VITALS: BP 123/66; TEMP 98.1
[2019-03-22] MEDS: Aspirin 81 mg Enteric Coated Tablet PO SCH (08:21)
[2019-03-22] MEDS: Famotidine 20 MG TAB PO SCH (08:21)
[2019-03-22] MEDS: Enoxaparin Sodium 40 MG/0.4 ML SYRINGE SC SCH (08:21)
--- NOTE | 2019-03-22 09:41 | PRG ---
DATE OF SERVICE: 03/22/2019 SUBJECTIVE: This morning, he is better. He would like to go home. OBJECTIVE: VITAL SIGNS: His temperature is 98, pulse is 79, respiratory rate is 18, saturations , blood pressure 120/66. LUNGS: Minimal crackles. CARDIAC: Normal S1 and S2. No gallops. ABDOMEN: No masses. LABORATORY DATA: White count 18,000. All cultures are negative. IMPRESSION: 1. Pneumonia, bronchitis. 2. Chronic obstructive pulmonary disease. PLAN: He could probably be switched over to oral antibiotics, tapering his steroids for 2 weeks. Follow up in the office as needed. Job ID: [id number]
--- NOTE | 2019-03-22 11:24 | DIS ---
DATE OF ADMISSION: 03/19/2019 DATE OF DISCHARGE: 03/22/2019 PRIMARY CARE PROVIDER: Dr. Rodarte. DISCHARGE DIAGNOSES: 1. Sepsis. 2. Acute bronchitis. 3. Chronic obstructive pulmonary disease exacerbation. 4. Hyponatremia. 5. Hypokalemia. 6. [id number] hypoxic respiratory failure. CONDITION OF PATIENT ON THE DAY OF DISCHARGE: Stable. I assessed Mr. Jorge on the day of discharge. He denies any chest pain or shortness of breath. Vital signs are stable. S1 and S2 are heard, regular. Lungs are clear to auscultation bilaterally. CONSULTATIONS DURING THIS HOSPITALIZATION: Pulmonary and Critical Care Medicine, Dr. Silviano Bah. FOLLOWUP APPOINTMENTS: The patient is advised to follow up with primary care provider in 3 to 5 days' time. DISCHARGE MEDICATIONS: 1. ProAir RespiClick p.r.n. 2. Aspirin 81 mg daily. 3. Fluocinolone cream as needed. 4. Atrovent 2 puffs four times a day as needed. 5. Combivent 2 puffs four times a day as needed. 6. Melatonin 3 mg at bedtime. 7. Ranitidine 150 mg daily. 8. Levofloxacin 750 mg daily for 5 days. 9. Prednisone taper over the next two weeks. HOSPITAL COURSE: Mr. Jorge is a pleasant 73-year-old gentleman, who was admitted to [facility] for sepsis and acute bronchitis on March 19. Please refer to my history and physical note dated March 19, 2019 for further details. He was treated with BiPAP on the first night of admission in the IMCU. He improved clinically with BiPAP therapy, steroids, bronchodilators, and antibiotics. He was transferred to the medical floor, where he continued to improve. He did have occasional episodes of delirium. He has been switched to oral steroids and oral antibiotics. He has been cleared for discharge by Pulmonary and Critical Care Medicine Service. On the day of discharge, he has white count of 18,700, hemoglobin 12.1, and platelet count 433,000, normal electrolytes and normal creatinine. Many thanks for allowing me to participate in your patient's care. Please feel free to contact me with any questions or concerns. DISCHARGE DESTINATION: Home. TIME SPENT: Total amount of time spent coordinating this discharge: 32 minutes. Job ID: [id number]
== END 2019-03-22 11:45 | disposition home or self-care (01) | DRG 871 ==
LOC: ERS 15:05 → IMCU/EMU 19:23 → T4-A 03-20 19:48
PROVIDERS: ADMIT Internal Medicine; ATTEND Internal Medicine
DX: A41.9 Sepsis, unspecified organism (principal); J96.21 Acute and chronic respiratory failure with hypoxia; E87.1 Hypo-osmolality and hyponatremia; J44.0 Chronic obstructive pulmonary disease with (acute) lower respiratory infection; J44.1 Chronic obstructive pulmonary disease with (acute) exacerbation; G62.9 Polyneuropathy, unspecified; G30.9 Alzheimer's disease, unspecified; F02.80 Dementia in other diseases classified elsewhere, unspecified severity, without behavioral disturbance, psychotic disturbance, mood disturbance, and anxiety; E78.5 Hyperlipidemia, unspecified; I25.10 Atherosclerotic heart disease of native coronary artery without angina pectoris; F32.9 Major depressive disorder, single episode, unspecified; J20.9 Acute bronchitis, unspecified; E87.6 Hypokalemia; N40.0 Benign prostatic hyperplasia without lower urinary tract symptoms; F43.10 Post-traumatic stress disorder, unspecified; Z79.82 Long term (current) use of aspirin; Z79.899 Other long term (current) drug therapy; Z88.0 Allergy status to penicillin; Z87.891 Personal history of nicotine dependence; Z95.1 Presence of aortocoronary bypass graft; C4A.39 Merkel cell carcinoma of other parts of face
CPT/HCPCS: 36415; 71045; 74019; 80048; 80053; 82550; 82805; 83880; 84484; 85025; 87040; 93005; 94640; 94644; 94660; 94760; 96365; 96366; 96367; 96375; J0456; J0696; J1650; J1940; J2920; J2930; J3475; J3490; J7050; J7611; J7620; J7626

== ENCOUNTER 2020-06-24 07:23 | Inpatient (IN) | payer MEDICARE ==
[2020-06-24 08:13] LABS: Actual Bicarbonate (HCO3a) 21.8 mEq/L (22-28); Analyzer IN Cardio ER; Base Excess (BEa) -2.5 mEq/L (-2.0 to +3.0); CO2 Tension 36.7 mmHg (35.0-45.0); Calcium, Ionized (arterial) 1.06 mmol/L (1.12-1.30); Carboxyhemoglobin (COHb) 0.2 gm% (0.0-3.0); Hemoglobin (Hb) 15.9 g/dL (14.0-18.0); O2 Tension (PaO2), arterial 73.7 mmHg (> 70.0); Potassium - ABG Lab 3.98 mmol/L (3.70-5.30); pH, Arterial 7.39 (7.35-7.45)
[2020-06-24 08:16] LABS: #Lymphocytes 1.2 thou/uL (1.20-3.40); #Monocytes 0.6 thou/uL (0.11-0.59); #Neutrophils 6.7 thou/uL (1.40-6.50); %Basophils 0.3 % (0.0-1.0); %Eosinophils 0.5 % (0.0-10.0); %Lymphocytes 13.4 % (21.0-51.0); %Monocytes 6.7 % (0.0-10.0); Hemoglobin 12.6 g/dL (14.0-18.0); Mean Corpuscular HGB CONC 33.3 g/dL (32.0-36.0); Mean Corpuscular Hemoglobin 28.9 pg (27.0-31.0); Mean Platelet Volume 7.1 fL (7.4-10.4); Platelet Count 237 thou/uL (130-400); RBC Distribution Width 12.6 % (11.5-14.5); Red Blood Cell (RBC) Count 4.36 mill/uL (4.70-6.10); White Blood Cell (WBC) Count 8.5 thou/uL (4.8-10.8)
[2020-06-24 08:34] LABS: ALT (SGPT) 32 U/L (8-55); AST (SGOT) 42 U/L (5-34); Albumin 3.4 g/dL (3.4-4.8); Alkaline Phosphatase 69 U/L (40-110); Anion Gap 15 mmol/L (10-20); BUN (Urea Nitrogen) 56 mg/dL (8.4-25.7); Bilirubin, Total 0.7 mg/dL (0.2-1.2); Calc. Creatinine Clearance 0 mL/min (70-130); Calcium 7.6 mg/dL (7.8-10.44); Carbon Dioxide 23 mmol/L (23-31); Chloride 102 mmol/L (98-107); Globulin 2.8 g/dL (2.4-3.5); Glucose 132 mg/dL (83-110); Potassium 4.2 mmol/L (3.5-5.1); Protein, Total 6.2 g/dL (5.8-8.1); Sodium 136 mmol/L (136-145)
[2020-06-24 08:56] LABS: CKMB 1.6 ng/mL (0-6.6)
[2020-06-24] MEDS ORDERED: Aspirin Chewable 81 MG TAB ONE (09:12)
--- NOTE | 2020-06-24 09:20 | CT ---
CT ANGIOGRAM THORAX WITH IV CONTRAST AND 3-D RECONSTRUCTIONS CLINICAL INDICATION: Shortness of breath, COPD, Covid positive. COMPARISON: 08/25/2018 FINDINGS: Pulmonary arteries: No filling defects are seen in the pulmonary arteries to suggest a pulmonary embo jose. Aorta: Vascular calcifications are seen in the thoracic aorta. Thoracic aorta is normal in caliber wi thout evidence of an aortic dissection Lungs: Increased interstitial and patchy densities are seen in each upper lobe. While a portion of th e changes may related to chronic lung changes, findings are worrisome for pneumonitis. No pleural effusion is seen. No discrete pulmonary nodule or mass is identified. Mediastinum: Postoperative changes related to CABG are present. No enlarged lymph nodes are seen by C T size criteria. Thyroid gland: Small in size. Osseous structures: No suspicious lytic or sclerotic osseous lesion. Chest wall: No abnormality visualized. Upper abdomen: Within normal limits for phase of imaging. IMPRESSION: 1. Increased interstitial and patchy densities in each upper lobe. While a portion of these lung gonzalez ges could be chronic in origin, findings are felt to be secondary to pneumonitis and possibly atypical infectious process. Follow-up to resolution is recommended. 2. No CT evidence of a pulmonary embolus. 3. Evidence of CABG.
[2020-06-24] MEDS ORDERED: Zinc Sulfate 220 MG CAP PO SCH (11:00)
[2020-06-24] MEDS ORDERED: Sodium Chloride 0.9% 500 ML IV SCH (11:00)
[2020-06-24] MEDS ORDERED: Ascorbic Acid 500 mg Chewable Tablet PO SCH (11:00)
--- NOTE | 2020-06-24 11:12 | PDOC.HHP ---
Hospitalist HPI - History of Present Illness shortness of breath History of Present Illness: Patient is a pleasant 75-year-old gentleman who was seen in the emergency room on June 24, 2020. He reports that he was diagnosed with COVID-19 infection approximately 1 week ago. He has been having progressively worsening shortness of breath, which worsened this morning. He also reports having fever and chills. He reports feeling significant shortness of breath after getting out of bed. EMS was called, and patient was found to be tachypneic and wheezing. He got breathing treatments and oxygen, with improvement in oxygen saturation to 90%. He also received Solu-Medrol, after which patient felt little better. Patient has been referred to hospitalist service for admission and further management. ED Course: BP: 118/40, MAP: 66, Pulse: 62, Resp: 23 (Non-Labored), Temp: 99 (Oral), Pain: 0, O2 sat: 100 on (4L Oxygen), Time: 06/24/2020 10:44. Hospitalist ROS - Review of Systems Constitutional: reports: fever, chills, weakness Respiratory: reports: cough, dry, shortness of breath, SOB with excertion. denies: hemoptysis, pleuritic pain, sputum, wheezing Cardiovascular: denies: chest pain, palpitations, orthopnea, paroxysmal noc. dyspnea, edema, light headedness Gastrointestinal: denies: nausea, vomiting, abdominal pain, diarrhea, constipation, melena, hematochezia Neurological: denies: weakness, numbness, incoordination, change in speech, confusion, seizures All other systems reviewed; all pertinent +/- noted in HPI/Subj - Medication Medications: Allergies: Nitrofurantoin, oxybutynin, penicillin G Home medications: albuterol AEROSOL (GRAM) : Strength - 90 mcg : INHALATION Patient Dose: 2 puff(s) Inhaler As Needed. aspirin oral TABLET : Strength - 81 mg : ORAL Patient Dose: 1 tab(s) Oral once a day. ipratropium bromide inhalation SOLUTION, NON-ORAL : Strength - 0.2 mg/mL (0.02 %) : INHALATION Patient Dose: 1 units Nebulize As Needed. tamsulosin CAPSULE, EXT RELEASE 24 HR : Strength - 0.4 mg : ORAL Patient Dose: 0.4 mg Oral once a day (at bedtime). Symbicort HFA aerosol inhaler : Strength - 160 mcg-4.5 mcg/actuation : INHALATION Patient Dose: UNK mg Inhaler. 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 Surgical history: Right ear surgery, bladder surgery, UroLift, coronary artery bypass graft. Psychiatric history: Depression and PTSD Social history: Patient denies tobacco use, alcohol use or recreational drug use. Family history: No family history of premature coronary artery disease. - Exam General Appearance: NAD Eye: anicteric sclera ENT: normocephalic atraumatic, no oropharyngeal lesions Neck: supple, symmetric, no thyromegaly, no lymphadenopathy Heart: RRR Respiratory: no rales, normal chest expansion, tachypneic, wheezes Gastrointestinal: soft, non-tender, non-distended, normal bowel sounds Skin: no rashes Neurological: cranial nerve grossly intact, normal sensation to touch, no weakness, no focal deficits Psychiatric: normal affect, normal behavior, A&O x 3 Hospitalist Results - Labs Result Diagrams: 06/24/20 07:57 06/24/20 07:57 Lab results: WBC 8.5 thou/uL (4.8-10.8) 06/24/20 07:57 Hgb 12.6 g/dL (14.0-18.0) L 06/24/20 07:57 Hct 38.0 % (42.0-52.0) L 06/24/20 07:57 MCV 87.0 fL (78.0-98.0) 06/24/20 07:57 Plt Count 237 thou/uL (130-400) 06/24/20 07:57 Neutrophils % 79.0 % (42.0-75.0) H 06/24/20 07:57 Sodium 136 mmol/L (136-145) 06/24/20 07:57 Potassium 4.2 mmol/L (3.5-5.1) 06/24/20 07:57 Chloride 102 mmol/L (98-107) 06/24/20 07:57 Carbon Dioxide 23 mmol/L (23-31) 06/24/20 07:57 BUN 56 mg/dL (8.4-25.7) H 06/24/20 07:57 Creatinine 1.76 mg/dL (0.7-1.3) H 06/24/20 07:57 Glucose 132 mg/dL (83-110) H 06/24/20 07:57 Lactic Acid 1.5 mmol/L (0.5-2.2) 06/24/20 07:58 Calcium 7.6 mg/dL (7.8-10.44) L 06/24/20 07:57 Total Bilirubin 0.7 mg/dL (0.2-1.2) 06/24/20 07:57 AST 42 U/L (5-34) H 06/24/20 07:57 ALT 32 U/L (8-55) 06/24/20 07:57 Alkaline Phosphatase 69 U/L (40-110) 06/24/20 07:57 CK-MB (CK-2) 1.6 ng/mL (0-6.6) 06/24/20 07:57 Troponin I 0.036 ng/mL (< 0.028) H 06/24/20 07:57 B-Natriuretic Peptide 63.3 pg/mL (0-100) 06/24/20 07:57 Serum Total Protein 6.2 g/dL (5.8-8.1) 06/24/20 07:57 Albumin 3.4 g/dL (3.4-4.8) 06/24/20 07:57 - EKG Interpretation EKG: KG by my review shows normal sinus rhythm with right bundle branch block, no ST changes to suggest an acute coronary syndrome. - Radiology Interpretation CT scan - chest Status: image reviewed by me Additional Comment: CT ANGIOGRAM THORAX WITH IV CONTRAST AND 3-D RECONSTRUCTIONS CLINICAL INDICATION: Shortness of breath, COPD, Covid positive. COMPARISON: 08/25/2018 FINDINGS: Pulmonary arteries: No filling defects are seen in the pulmonary arteries to suggest a pulmonary embo jose. Aorta: Vascular calcifications are seen in the thoracic aorta. Thoracic aorta is normal in caliber wi thout evidence of an aortic dissection Lungs: Increased interstitial and patchy densities are seen in each upper lobe. While a portion of th e changes may related to chronic lung changes, findings are worrisome for pneumonitis. No pleural effusion is seen. No discrete pulmonary nodule or mass is identified. Mediastinum: Postoperative changes related to CABG are present. No enlarged lymph nodes are seen by C T size criteria. Thyroid gland: Small in size. Osseous structures: No suspicious lytic or sclerotic osseous lesion. Chest wall: No abnormality visualized. Upper abdomen: Within normal limits for phase of imaging. IMPRESSION: 1. Increased interstitial and patchy densities in each upper lobe. While a portion of these lung gonzalez ges could be chronic in origin, findings are felt to be secondary to pneumonitis and possibly atypical infectious process. Follow-up to resolution is recommended. 2. No CT evidence of a pulmonary embolus. 3. Evidence of CABG. Hospitalist H&P A/P - Problem (1) Acute respiratory failure with hypoxia Code(s): J96.01 - ACUTE RESPIRATORY FAILURE WITH HYPOXIA Status: Acute (2) Pneumonia due to COVID-19 virus Code(s): U07.1 - COVID-19; J12.89 - OTHER VIRAL PNEUMONIA Status: Acute (3) Acute kidney injury Code(s): N17.9 - ACUTE KIDNEY FAILURE, UNSPECIFIED Status: Acute (4) Elevated troponin Code(s): R77.8 - OTHER SPECIFIED ABNORMALITIES OF PLASMA PROTEINS Status: Acute (5) COPD exacerbation Code(s): J44.1 - CHRONIC OBSTRUCTIVE PULMONARY DISEASE W (ACUTE) EXACERBATION Status: Acute (6) Dementia Code(s): F03.90 - UNSPECIFIED DEMENTIA WITHOUT BEHAVIORAL DISTURBANCE Status: Chronic - Plan Plan: Start patient on dexamethasone, vitamin C and zinc. Check with pharmacy if patient is eligible for remdesivir. Convalescent plasma. Oxygen as needed. Bronchodilators as needed. IV fluids, then recheck creatinine. Elevated troponin likely secondary to demand ischemia, recheck troponin and monitor on telemetry. Level of risk: High. Level of complexity: High. Estimated length of stay in the hospital: Greater than 2 midnights. Primary CARE provider: [facility] [place].
[2020-06-24 11:29] LABS: ALV-art Gradient 80.065 mmHg (0-20); Puncture Site RRA
[2020-06-24 12:01] LABS: Troponin I 0.017 ng/mL (< 0.028)
[2020-06-24 12:22] VITALS: BMI 37.0
[2020-06-24] MEDS: Sodium Chloride 0.9% 1,000 ML IV SCH ×2 (12:51→20:07)
--- NOTE | 2020-06-24 12:56 | RAD ---
RADIOGRAPH CHEST 1 VIEW: Date: 06/24/2020. Time: 8:10 a.m. HISTORY: A 75-year-old male with dyspnea. COMPARISON: 06/18/2019. FINDINGS: Again noted is the hyperinflation of COPD, and signs of previous CABG. No cardiomegaly. No pneumoth orax. New finding of subtle, faint, scattered mild infiltrates at bilateral upper lung zones, and bi lateral mid-lower lung zones. IMPRESSION: 1. New faint, mild infiltrates suggestive of early COVID-19 pneumonia. 2. Emphysema. JN [] POS: JIN
[2020-06-24] MEDS: Dexamethasone 4 mg/ml Vial SLOW IVP SCH (13:45)
[2020-06-24 14:42] LABS: Troponin I 0.024 ng/mL (< 0.028)
[2020-06-24] MEDS ORDERED: REMDESIVIR (EUA) 200 MG in Sodium Chloride 0.9% 250 ML 210 ML IV SCH (15:00)
[2020-06-24] MEDS: PROVENTIL INHALER 6.7 G (200 INHALATIONS) INH SCH ×2 (15:25→17:39)
[2020-06-24] MEDS ORDERED: Melatonin 3 MG TAB PO PRN (15:27)
[2020-06-24] MEDS: Primidone 50 MG TAB PO SCH ×2 (15:54→20:07)
[2020-06-24] MEDS: rOPINIRole HCl 1 MG TAB PO SCH (20:04)
[2020-06-24] MEDS: Amiodarone 200 MG TAB PO SCH (20:04)
[2020-06-24] MEDS: Atorvastatin Calcium 20 MG TAB PO SCH (20:04)
[2020-06-24] MEDS: Enoxaparin Sodium 30 MG/0.3 ML SYRINGE SC SCH (20:05)
[2020-06-24] MEDS: Mirtazapine 30 MG Soltab PO SCH (20:05)
[2020-06-24] MEDS: Hydrocortisone 1% Cream 30 GM TUBE TOP SCH (20:05)
[2020-06-24] MEDS: Prazosin HCl 1 MG CAP PO SCH (20:06)
[2020-06-24] MEDS: Pregabalin 75 MG CAP PO SCH (20:07)
[2020-06-24] MEDS: Tamsulosin HCl 0.4 MG CAP PO SCH (20:07)
[2020-06-25] MEDS: Levothyroxine Sodium 75 MCG TAB PO SCH (05:18)
[2020-06-25] MEDS: PROVENTIL INHALER 6.7 G (200 INHALATIONS) INH SCH ×4 (05:42→19:25)
[2020-06-25] MEDS: Pregabalin 75 MG CAP PO SCH ×2 (08:15→21:33)
[2020-06-25] MEDS: Amiodarone 200 MG TAB PO SCH ×2 (08:16→21:31)
[2020-06-25] MEDS: Zinc Sulfate 220 MG CAP PO SCH (08:16)
[2020-06-25] MEDS: Ascorbic Acid 500 mg Chewable Tablet PO SCH (08:16)
[2020-06-25] MEDS: Spironolactone 25 MG TAB PO SCH (08:16)
[2020-06-25] MEDS: FLUoxetine HCl 20 MG CAP PO SCH (08:17)
[2020-06-25] MEDS: Furosemide 40 MG TAB PO SCH (08:17)
[2020-06-25] MEDS: Primidone 50 MG TAB PO SCH ×3 (08:17→21:33)
[2020-06-25] MEDS: Famotidine 20 MG TAB PO SCH (08:17)
[2020-06-25] MEDS: Finasteride 5 MG TAB PO SCH (08:17)
[2020-06-25] MEDS: Enoxaparin Sodium 30 MG/0.3 ML SYRINGE SC SCH ×2 (08:17→21:31)
[2020-06-25] MEDS: Cholecalciferol 1,000 UNITS (25 MCG) TAB PO SCH (08:17)
[2020-06-25] MEDS: Aspirin Chewable 81 MG TAB PO SCH (08:17)
[2020-06-25] MEDS: Ipratropium Oral Inhaler INH PRN ×2 (08:53→15:05)
[2020-06-25] MEDS ORDERED: Non-Formulary Item 1 EACH (Potassium Gluconate [Potassium] 600 MG Tablet) PO SCH (09:00)
[2020-06-25] MEDS: Sodium Chloride 0.9% 1,000 ML IV SCH (12:23)
[2020-06-25] MEDS: Hydrocortisone 1% Cream 30 GM TUBE TOP SCH ×2 (12:43→21:32)
[2020-06-25] MEDS: Dexamethasone 4 mg/ml Vial SLOW IVP SCH (14:52)
[2020-06-25] MEDS: REMDESIVIR (EUA) 100 MG in Sodium Chloride 0.9% 250 ML 230 ML IV SCH (14:53)
--- NOTE | 2020-06-25 16:27 | PDOC.HOSPP ---
- Subjective Encounter Date: 06/25/20 Encounter Time: 08:30 Subjective: Patient seen for follow-up for hypoxic respiratory failure. He reports feeling better today. - Objective Vital Signs & Weight: Vital Signs (12 hours) Temp Pulse Resp BP Pulse Ox 06/25/20 12:59 97.6 F 68 24 H 118/59 L 93 L 06/25/20 08:00 97.7 F 64 26 H 131/67 95 06/25/20 07:55 95 Weight Weight 229 lb 11.2 oz I&O: 06/24/20 06/25/20 06/26/20 06:59 06:59 06:59 Intake Total 2773 Output Total 1999 Balance 773 Result Diagrams: 06/24/20 07:57 06/24/20 13:45 Additional Labs: Labs and MAR reviewed by me EKG Reviewed by me: Yes (Telemetry shows normal sinus rhythm) Hospitalist ROS - Review of Systems Respiratory: reports: cough, SOB with excertion, sputum. denies: dry, shortness of breath, hemoptysis, pleuritic pain, wheezing Cardiovascular: denies: chest pain, palpitations, orthopnea, paroxysmal noc. dyspnea, edema, light headedness - Medication Medications: Active Medications Generic Name Dose Route Start Last Admin Trade Name Freq PRN Reason Stop Dose Admin Albuterol Sulfate 2 puff 06/24/20 15:00 06/25/20 15:07 Proventil Inhaler 6.7 G (200 Inhalations) INH 2 puff QID-RT RONY Administration Amiodarone HCl 200 mg 06/24/20 21:00 06/25/20 08:16 Amiodarone 200 Mg Tab PO 200 mg BID RONY Administration Ascorbic Acid 1,000 mg 06/25/20 09:00 06/25/20 08:16 Ascorbic Acid 500 Mg Chewable Tablet PO 1,000 mg DAILY RONY Administration Aspirin 81 mg 06/25/20 09:00 06/25/20 08:17 Aspirin Chewable 81 Mg Tab PO 81 mg DAILY RONY Administration Atorvastatin Calcium 20 mg 06/24/20 21:00 06/24/20 20:04 Atorvastatin Calcium 20 Mg Tab PO 20 mg HS RONY Administration Cholecalciferol 1,000 units 06/25/20 09:00 06/25/20 08:17 Cholecalciferol 1,000 Units (25 Mcg) Tab PO 1,000 units DAILY RONY Administration Dexamethasone 6 mg 06/24/20 14:00 06/25/20 14:52 Dexamethasone 4 Mg/Ml Vial SLOW IVP 6 mg 1400 RONY Administration Diltiazem HCl 180 mg 06/25/20 09:00 06/25/20 08:16 Diltiazem Hcl Cd 180 Mg Capsule PO 180 mg DAILY RONY Administration Enoxaparin Sodium 30 mg 06/24/20 21:00 06/25/20 08:17 Enoxaparin Sodium 30 Mg/0.3 Ml Syringe SC 30 mg 0900,2100 RONY Administration Famotidine 20 mg 06/25/20 09:00 06/25/20 08:17 Famotidine 20 Mg Tab PO 20 mg DAILY RONY Administration Finasteride 5 mg 06/25/20 09:00 06/25/20 08:17 Finasteride 5 Mg Tab PO 5 mg DAILY RONY Administration Fluoxetine HCl 20 mg 06/25/20 09:00 06/25/20 08:17 Fluoxetine Hcl 20 Mg Cap PO 20 mg DAILY RONY Administration Furosemide 40 mg 06/25/20 09:00 06/25/20 08:17 Furosemide 40 Mg Tab PO 40 mg DAILY RONY Administration Hydrocortisone/Aloe 0 gm 06/24/20 21:00 06/25/20 12:43 Hydrocortisone 1% Cream 30 Gm Tube TOP 1 applic BID RONY Administration Remdesivir 100 mg/ Sodium 250 mls @ 250 mls/hr 06/25/20 15:00 06/25/20 14:53 Chloride IV 06/28/20 15:59 250 mls 1500 RONY Administration Ipratropium [place] 2 puff 06/24/20 11:40 06/25/20 15:05 Ipratropium Oral Inhaler INH 2 puff QIDPRN PRN Administration Wheezing Levothyroxine Sodium 75 mcg 06/25/20 06:00 06/25/20 05:18 Levothyroxine Sodium 75 Mcg Tab PO 75 mcg 0600 RONY Administration Mirtazapine 15 mg 06/24/20 21:00 06/24/20 20:05 Mirtazapine 30 Mg Soltab PO 15 mg HS RONY Administration Prazosin HCl 1 mg 06/24/20 21:00 06/24/20 20:06 Prazosin Hcl 1 Mg Cap PO 1 mg HS RONY Administration Pregabalin 150 mg 06/24/20 21:00 06/25/20 08:15 Pregabalin 75 Mg Cap PO 150 mg BID RONY Administration Primidone 50 mg 06/25/20 15:00 06/25/20 14:51 Primidone 50 Mg Tab PO 50 mg TID RONY Administration Ropinirole HCl 1 mg 06/24/20 21:00 06/24/20 20:04 Ropinirole Hcl 1 Mg Tab PO 1 mg HS RONY Administration Spironolactone 25 mg 06/25/20 09:00 06/25/20 08:16 Spironolactone 25 Mg Tab PO 25 mg DAILY RONY Administration Tamsulosin HCl 0.4 mg 06/24/20 21:00 06/24/20 20:07 Tamsulosin Hcl 0.4 Mg Cap PO 0.4 mg HS RONY Administration Zinc Sulfate 220 mg 06/25/20 09:00 06/25/20 08:16 Zinc Sulfate 220 Mg Cap PO 220 mg DAILY RONY Administration - Exam General Appearance: awake alert Eye: anicteric sclera ENT: moist mucosa Neck: supple Heart: RRR Respiratory: rhonchi Gastrointestinal: soft, non-tender Skin: no rashes Musculoskeletal: no muscle wasting Psychiatric: normal affect, normal behavior Hosp A/P (1) Acute respiratory failure with hypoxia Code(s): J96.01 - ACUTE RESPIRATORY FAILURE WITH HYPOXIA Status: Acute (2) Pneumonia due to COVID-19 virus Code(s): U07.1 - COVID-19; J12.89 - OTHER VIRAL PNEUMONIA Status: Acute (3) Acute kidney injury Code(s): N17.9 - ACUTE KIDNEY FAILURE, UNSPECIFIED Status: Acute (4) COPD exacerbation Code(s): J44.1 - CHRONIC OBSTRUCTIVE PULMONARY DISEASE W (ACUTE) EXACERBATION Status: Acute (5) Dementia Code(s): F03.90 - UNSPECIFIED DEMENTIA WITHOUT BEHAVIORAL DISTURBANCE Status: Chronic (6) Elevated troponin Code(s): R77.8 - OTHER SPECIFIED ABNORMALITIES OF PLASMA PROTEINS Status: Resolved - Plan - Plan Continue dexamethasone, vitamin C and zinc. Continue remdesivir. Oxygen as needed. Bronchodilators as needed. ANTON improving, recheck labs tomorrow.
[2020-06-25] MEDS: Atorvastatin Calcium 20 MG TAB PO SCH (21:31)
[2020-06-25] MEDS: Mirtazapine 30 MG Soltab PO SCH (21:31)
[2020-06-25] MEDS: rOPINIRole HCl 1 MG TAB PO SCH (21:33)
[2020-06-25] MEDS: Prazosin HCl 1 MG CAP PO SCH (21:33)
[2020-06-25] MEDS: Tamsulosin HCl 0.4 MG CAP PO SCH (21:33)
[2020-06-26] MEDS: Levothyroxine Sodium 75 MCG TAB PO SCH (05:16)
[2020-06-26] MEDS: PROVENTIL INHALER 6.7 G (200 INHALATIONS) INH SCH ×4 (05:27→17:35)
[2020-06-26 05:39] LABS: #Lymphocytes 0.9 thou/uL (1.20-3.40); #Monocytes 0.7 thou/uL (0.11-0.59); #Neutrophils 12.1 thou/uL (1.40-6.50); %Basophils 0.1 % (0.0-1.0); %Eosinophils 0.3 % (0.0-10.0); %Lymphocytes 6.4 % (21.0-51.0); %Monocytes 4.7 % (0.0-10.0); %Neutrophils 88.5 % (42.0-75.0); Hemoglobin 12.8 g/dL (14.0-18.0); Mean Corpuscular HGB CONC 33.3 g/dL (32.0-36.0); Mean Corpuscular Hemoglobin 29.2 pg (27.0-31.0); Mean Corpuscular Volume 87.7 fL (78.0-98.0); Mean Platelet Volume 7.5 fL (7.4-10.4); Platelet Count 301 thou/uL (130-400); RBC Distribution Width 12.7 % (11.5-14.5); Red Blood Cell (RBC) Count 4.39 mill/uL (4.70-6.10); White Blood Cell (WBC) Count 13.7 thou/uL (4.8-10.8)
[2020-06-26 06:02] LABS: ALT (SGPT) 35 U/L (8-55); AST (SGOT) 40 U/L (5-34); Albumin 3.5 g/dL (3.4-4.8); Alkaline Phosphatase 72 U/L (40-110); Anion Gap 15 mmol/L (10-20); BUN (Urea Nitrogen) 38 mg/dL (8.4-25.7); Bilirubin, Total 0.5 mg/dL (0.2-1.2); CRP (Inflammatory) 3.36 mg/dL (= or < 0.5); Calc. Creatinine Clearance 84 mL/min (70-130); Calcium 7.7 mg/dL (7.8-10.44); Carbon Dioxide 26 mmol/L (23-31); Chloride 105 mmol/L (98-107); Globulin 2.7 g/dL (2.4-3.5); Glucose 154 mg/dL (83-110); Potassium 4.7 mmol/L (3.5-5.1); Protein, Total 6.2 g/dL (5.8-8.1); Sodium 141 mmol/L (136-145)
[2020-06-26] MEDS: Amiodarone 200 MG TAB PO SCH ×2 (08:22→21:06)
[2020-06-26] MEDS: Ascorbic Acid 500 mg Chewable Tablet PO SCH (08:23)
[2020-06-26] MEDS: Cholecalciferol 1,000 UNITS (25 MCG) TAB PO SCH (08:23)
[2020-06-26] MEDS: Enoxaparin Sodium 30 MG/0.3 ML SYRINGE SC SCH ×2 (08:23→21:08)
[2020-06-26] MEDS: Aspirin Chewable 81 MG TAB PO SCH (08:23)
[2020-06-26] MEDS: FLUoxetine HCl 20 MG CAP PO SCH (08:24)
[2020-06-26] MEDS: Finasteride 5 MG TAB PO SCH (08:24)
[2020-06-26] MEDS: Famotidine 20 MG TAB PO SCH (08:24)
[2020-06-26] MEDS: Pregabalin 75 MG CAP PO SCH ×2 (08:25→21:04)
[2020-06-26] MEDS: Furosemide 40 MG TAB PO SCH (08:25)
[2020-06-26] MEDS: Zinc Sulfate 220 MG CAP PO SCH (08:26)
[2020-06-26] MEDS: Primidone 50 MG TAB PO SCH ×3 (08:26→21:04)
[2020-06-26] MEDS: Spironolactone 25 MG TAB PO SCH (08:26)
[2020-06-26] MEDS: Hydrocortisone 1% Cream 30 GM TUBE TOP SCH ×2 (08:26→21:09)
[2020-06-26] MEDS: Ipratropium Oral Inhaler INH PRN ×2 (12:18→17:37)
--- NOTE | 2020-06-26 15:25 | PDOC.HOSPP ---
- Subjective Encounter Date: 06/26/20 Encounter Time: 11:30 Subjective: Patient was seen for follow-up regarding hypoxic respiratory failure secondary to COVID-19 infection. He reports feeling better. - Objective Vital Signs & Weight: Vital Signs (12 hours) Temp Pulse Resp BP Pulse Ox 06/26/20 08:26 94 L 06/26/20 08:23 98.0 F 67 22 H 141/69 H 93 L 06/26/20 03:49 92 L Weight Weight 229 lb 11.2 oz I&O: 06/25/20 06/26/20 06/27/20 06:59 06:59 06:59 Intake Total 2773 2840 240 Output Total 2000 1400 200 Balance 773 1440 40 Result Diagrams: 06/26/20 05:16 06/26/20 05:16 Additional Labs: I reviewed patient's labs and MAR EKG Reviewed by me: Yes (Normal sinus rhythm on telemetry) Hospitalist ROS - Review of Systems Respiratory: reports: cough, sputum. denies: dry, shortness of breath, hemoptysis, SOB with excertion, pleuritic pain, wheezing Skin: denies: rash, lesions, bibi, bruising - Medication Medications: Active Medications Generic Name Dose Route Start Last Admin Trade Name Freq PRN Reason Stop Dose Admin Albuterol Sulfate 2 puff 06/24/20 15:00 06/26/20 12:16 Proventil Inhaler 6.7 G (200 Inhalations) INH 2 puff QID-RT RONY Administration Amiodarone HCl 200 mg 06/24/20 21:00 06/26/20 08:22 Amiodarone 200 Mg Tab PO 200 mg BID RONY Administration Ascorbic Acid 1,000 mg 06/25/20 09:00 06/26/20 08:23 Ascorbic Acid 500 Mg Chewable Tablet PO 1,000 mg DAILY RONY Administration Aspirin 81 mg 06/25/20 09:00 06/26/20 08:23 Aspirin Chewable 81 Mg Tab PO 81 mg DAILY RONY Administration Atorvastatin Calcium 20 mg 06/24/20 21:00 06/25/20 21:31 Atorvastatin Calcium 20 Mg Tab PO 20 mg HS RONY Administration Cholecalciferol 1,000 units 06/25/20 09:00 06/26/20 08:23 Cholecalciferol 1,000 Units (25 Mcg) Tab PO 1,000 units DAILY RONY Administration Dexamethasone 6 mg 12/30/20 14:00 06/25/20 14:52 Dexamethasone 4 Mg/Ml Vial SLOW IVP 6 mg 1400 RONY Administration Diltiazem HCl 180 mg 06/25/20 09:00 06/26/20 08:23 Diltiazem Hcl Cd 180 Mg Capsule PO 180 mg DAILY RONY Administration Enoxaparin Sodium 30 mg 06/24/20 21:00 06/26/20 08:23 Enoxaparin Sodium 30 Mg/0.3 Ml Syringe SC 30 mg 0900,2100 RONY Administration Famotidine 20 mg 06/25/20 09:00 06/26/20 08:24 Famotidine 20 Mg Tab PO 20 mg DAILY RONY Administration Finasteride 5 mg 06/25/20 09:00 06/26/20 08:24 Finasteride 5 Mg Tab PO 5 mg DAILY RONY Administration Fluoxetine HCl 20 mg 06/25/20 09:00 06/26/20 08:24 Fluoxetine Hcl 20 Mg Cap PO 20 mg DAILY RONY Administration Furosemide 40 mg 06/25/20 09:00 06/26/20 08:25 Furosemide 40 Mg Tab PO 40 mg DAILY RONY Administration Hydrocortisone/Aloe 0 gm 06/24/20 21:00 06/26/20 08:26 Hydrocortisone 1% Cream 30 Gm Tube TOP 1 applic BID RONY Administration Remdesivir 100 mg/ Sodium 250 mls @ 250 mls/hr 06/25/20 15:00 06/25/20 14:53 Chloride IV 06/28/20 15:59 250 mls 1500 RONY Administration Ipratropium [place] 2 puff 06/24/20 11:40 06/26/20 12:18 Ipratropium Oral Inhaler INH 2 puff QIDPRN PRN Administration Wheezing Levothyroxine Sodium 75 mcg 06/25/20 06:00 06/26/20 05:16 Levothyroxine Sodium 75 Mcg Tab PO 75 mcg 0600 RONY Administration Mirtazapine 15 mg 06/24/20 21:00 06/25/20 21:31 Mirtazapine 30 Mg Soltab PO 15 mg HS RONY Administration Prazosin HCl 1 mg 06/24/20 21:00 06/25/20 21:33 Prazosin Hcl 1 Mg Cap PO 1 mg HS RONY Administration Pregabalin 150 mg 06/24/20 21:00 06/26/20 08:25 Pregabalin 75 Mg Cap PO 150 mg BID RONY Administration Primidone 50 mg 06/25/20 15:00 06/26/20 08:26 Primidone 50 Mg Tab PO 50 mg TID RONY Administration Ropinirole HCl 1 mg 06/24/20 21:00 06/25/20 21:33 Ropinirole Hcl 1 Mg Tab PO 1 mg HS RONY Administration Spironolactone 25 mg 06/25/20 09:00 06/26/20 08:26 Spironolactone 25 Mg Tab PO 25 mg DAILY RONY Administration Tamsulosin HCl 0.4 mg 06/24/20 21:00 06/25/20 21:33 Tamsulosin Hcl 0.4 Mg Cap PO 0.4 mg HS RONY Administration Zinc Sulfate 220 mg 06/25/20 09:00 06/26/20 08:26 Zinc Sulfate 220 Mg Cap PO 220 mg DAILY RONY Administration - Exam General - other findings: Obese Eye: anicteric sclera ENT: no oropharyngeal lesions Neck: supple Heart: no gallops, no rubs Respiratory: CTAB Gastrointestinal: soft, non-tender Skin: no rashes Psychiatric: normal affect, normal behavior Hosp A/P (1) Acute respiratory failure with hypoxia Code(s): J96.01 - ACUTE RESPIRATORY FAILURE WITH HYPOXIA Status: Acute (2) Pneumonia due to COVID-19 virus Code(s): U07.1 - COVID-19; J12.89 - OTHER VIRAL PNEUMONIA Status: Acute (3) COPD exacerbation Code(s): J44.1 - CHRONIC OBSTRUCTIVE PULMONARY DISEASE W (ACUTE) EXACERBATION Status: Acute (4) Dementia Code(s): F03.90 - UNSPECIFIED DEMENTIA WITHOUT BEHAVIORAL DISTURBANCE Status: Chronic (5) Elevated troponin Code(s): R77.8 - OTHER SPECIFIED ABNORMALITIES OF PLASMA PROTEINS Status: Resolved (6) Acute kidney injury Code(s): N17.9 - ACUTE KIDNEY FAILURE, UNSPECIFIED Status: Resolved - Plan - Plan Continue remdesivir, dexamethasone, vitamin C and zinc. Oxygen as needed. Bronchodilators as needed. ANTON has resolved.
[2020-06-26] MEDS: REMDESIVIR (EUA) 100 MG in Sodium Chloride 0.9% 250 ML 230 ML IV SCH (15:35)
[2020-06-26] MEDS: Dexamethasone 4 mg/ml Vial SLOW IVP SCH (15:36)
[2020-06-26] MEDS: rOPINIRole HCl 1 MG TAB PO SCH (21:03)
[2020-06-26] MEDS: Atorvastatin Calcium 20 MG TAB PO SCH (21:04)
[2020-06-26] MEDS: Mirtazapine 30 MG Soltab PO SCH (21:06)
[2020-06-26] MEDS: Tamsulosin HCl 0.4 MG CAP PO SCH (21:07)
[2020-06-26] MEDS: Prazosin HCl 1 MG CAP PO SCH (21:08)
[2020-06-27 05:02] LABS: #Lymphocytes 0.9 thou/uL (1.20-3.40); #Monocytes 0.8 thou/uL (0.11-0.59); #Neutrophils 10.8 thou/uL (1.40-6.50); %Eosinophils 0.3 % (0.0-10.0); %Lymphocytes 6.8 % (21.0-51.0); %Monocytes 6.3 % (0.0-10.0); %Neutrophils 86.5 % (42.0-75.0); Hemoglobin 12.7 g/dL (14.0-18.0); Mean Corpuscular HGB CONC 32.8 g/dL (32.0-36.0); Mean Corpuscular Hemoglobin 28.6 pg (27.0-31.0); Mean Corpuscular Volume 87.3 fL (78.0-98.0); Mean Platelet Volume 7.4 fL (7.4-10.4); Platelet Count 338 thou/uL (130-400); RBC Distribution Width 12.5 % (11.5-14.5); Red Blood Cell (RBC) Count 4.43 mill/uL (4.70-6.10); White Blood Cell (WBC) Count 12.5 thou/uL (4.8-10.8)
[2020-06-27 05:32] LABS: ALT (SGPT) 39 U/L (8-55); AST (SGOT) 32 U/L (5-34); Albumin 3.5 g/dL (3.4-4.8); Alkaline Phosphatase 73 U/L (40-110); Anion Gap 14 mmol/L (10-20); BUN (Urea Nitrogen) 27 mg/dL (8.4-25.7); Bilirubin, Total 0.6 mg/dL (0.2-1.2); Calc. Creatinine Clearance 99 mL/min (70-130); Calcium 7.9 mg/dL (7.8-10.44); Carbon Dioxide 26 mmol/L (23-31); Chloride 106 mmol/L (98-107); Globulin 2.7 g/dL (2.4-3.5); Glucose 189 mg/dL (83-110); Potassium 4.9 mmol/L (3.5-5.1); Protein, Total 6.2 g/dL (5.8-8.1); Sodium 141 mmol/L (136-145)
[2020-06-27] MEDS: Levothyroxine Sodium 75 MCG TAB PO SCH (05:46)
[2020-06-27] MEDS: PROVENTIL INHALER 6.7 G (200 INHALATIONS) INH SCH ×4 (06:35→18:17)
[2020-06-27] MEDS: Cholecalciferol 1,000 UNITS (25 MCG) TAB PO SCH (08:23)
[2020-06-27] MEDS: Ascorbic Acid 500 mg Chewable Tablet PO SCH (08:23)
[2020-06-27] MEDS: Amiodarone 200 MG TAB PO SCH ×2 (08:23→21:58)
[2020-06-27] MEDS: Aspirin Chewable 81 MG TAB PO SCH (08:23)
[2020-06-27] MEDS: Famotidine 20 MG TAB PO SCH (08:24)
[2020-06-27] MEDS: Enoxaparin Sodium 30 MG/0.3 ML SYRINGE SC SCH ×2 (08:24→21:58)
[2020-06-27] MEDS: Finasteride 5 MG TAB PO SCH (08:24)
[2020-06-27] MEDS: Pregabalin 75 MG CAP PO SCH ×2 (08:24→21:55)
[2020-06-27] MEDS: FLUoxetine HCl 20 MG CAP PO SCH (08:25)
[2020-06-27] MEDS: Primidone 50 MG TAB PO SCH ×3 (08:25→21:55)
[2020-06-27] MEDS: Spironolactone 25 MG TAB PO SCH (08:25)
[2020-06-27] MEDS: Hydrocortisone 1% Cream 30 GM TUBE TOP SCH ×2 (08:25→21:59)
[2020-06-27] MEDS: Zinc Sulfate 220 MG CAP PO SCH (08:25)
[2020-06-27] MEDS: Furosemide 40 MG TAB PO SCH (08:25)
[2020-06-27] MEDS: Diabetic Tussin 200 MG/10 ML UDCUP PO PRN ×2 (08:26→14:10)
[2020-06-27] MEDS: Ipratropium Oral Inhaler INH PRN (08:26)
--- NOTE | 2020-06-27 11:11 | EKG ---
Test Reason : Blood Pressure : / mmHG Vent. Rate : 073 BPM Atrial Rate : 073 BPM P-R Int : 152 ms QRS Dur : 098 ms QT Int : 428 ms P-R-T Axes : 066 046 059 degrees QTc Int : 471 ms Normal sinus rhythm Incomplete right bundle branch block Borderline ECG Confirmed by RUEL LEMUS DO ([id number]), script editor HOWIE GUTIÉRREZ ([id number]) on 06/27/2020 11:11:27 AM Referred By: Confirmed By:RUEL LEMUS DO
[2020-06-27] MEDS: Dexamethasone 4 mg/ml Vial SLOW IVP SCH (14:10)
[2020-06-27] MEDS: REMDESIVIR (EUA) 100 MG in Sodium Chloride 0.9% 250 ML 230 ML IV SCH (14:11)
--- NOTE | 2020-06-27 17:10 | PDOC.HOSPP ---
- Subjective Encounter Date: 06/27/20 Encounter Time: 11:00 Subjective: Patient seen in follow-up on respiratory failure secondary to COVID-19 infection. Reports feeling better. - Objective Vital Signs & Weight: Vital Signs (12 hours) Temp Pulse Resp BP Pulse Ox 06/27/20 11:19 97.8 F 59 L 20 117/66 100 06/27/20 08:25 97.6 F 62 19 138/82 97 Weight Weight 229 lb 11.2 oz I&O: 06/26/20 06/27/20 06/28/20 06:59 06:59 06:59 Intake Total 2840 1240 Output Total 1400 1000 625 Balance 1440 240 -625 Result Diagrams: 06/27/20 04:40 06/27/20 04:40 Additional Labs: Labs and MAR reviewed by dc Hospitalist ROS - Review of Systems Respiratory: reports: cough, dry, SOB with excertion Cardiovascular: denies: chest pain, palpitations, orthopnea, paroxysmal noc. dyspnea, edema, light headedness Gastrointestinal: denies: nausea, vomiting, abdominal pain, diarrhea, constipation, melena, hematochezia - Medication Medications: Active Medications Generic Name Dose Route Start Last Admin Trade Name Freq PRN Reason Stop Dose Admin Albuterol Sulfate 2 puff 06/24/20 15:00 06/27/20 16:32 Proventil Inhaler 6.7 G (200 Inhalations) INH 2 puff QID-RT RONY Administration Amiodarone HCl 200 mg 06/24/20 21:00 06/27/20 08:23 Amiodarone 200 Mg Tab PO 200 mg BID RONY Administration Ascorbic Acid 1,000 mg 06/25/20 09:00 06/27/20 08:23 Ascorbic Acid 500 Mg Chewable Tablet PO 1,000 mg DAILY RONY Administration Aspirin 81 mg 06/25/20 09:00 06/27/20 08:23 Aspirin Chewable 81 Mg Tab PO 81 mg DAILY RONY Administration Atorvastatin Calcium 20 mg 06/24/20 21:00 06/26/20 21:04 Atorvastatin Calcium 20 Mg Tab PO 20 mg HS RONY Administration Cholecalciferol 1,000 units 06/25/20 09:00 06/27/20 08:23 Cholecalciferol 1,000 Units (25 Mcg) Tab PO 1,000 units DAILY RONY Administration Dexamethasone 6 mg 06/24/20 14:00 06/27/20 14:10 Dexamethasone 4 Mg/Ml Vial SLOW IVP 6 mg 1400 RONY Administration Diltiazem HCl 180 mg 06/25/20 09:00 06/27/20 08:24 Diltiazem Hcl Cd 180 Mg Capsule PO 180 mg DAILY RONY Administration Enoxaparin Sodium 30 mg 06/24/20 21:00 06/27/20 08:24 Enoxaparin Sodium 30 Mg/0.3 Ml Syringe SC 30 mg 0900,2100 RONY Administration Famotidine 20 mg 06/25/20 09:00 06/27/20 08:24 Famotidine 20 Mg Tab PO 20 mg DAILY RONY Administration Finasteride 5 mg 06/25/20 09:00 06/27/20 08:24 Finasteride 5 Mg Tab PO 5 mg DAILY RONY Administration Fluoxetine HCl 20 mg 06/25/20 09:00 06/27/20 08:25 Fluoxetine Hcl 20 Mg Cap PO 20 mg DAILY RONY Administration Furosemide 40 mg 06/25/20 09:00 06/27/20 08:25 Furosemide 40 Mg Tab PO 40 mg DAILY RONY Administration Guaifenesin 200 mg 06/27/20 07:50 06/27/20 14:10 Diabetic Tussin 200 Mg/10 Ml Udcup PO 200 mg Q4H PRN Administration Cough Hydrocortisone/Aloe 0 gm 06/24/20 21:00 06/27/20 08:25 Hydrocortisone 1% Cream 30 Gm Tube TOP 1 applic BID RONY Administration Remdesivir 100 mg/ Sodium 250 mls @ 250 mls/hr 06/25/20 15:00 06/27/20 14:11 Chloride IV 06/28/20 15:59 250 mls 1500 RONY Administration Ipratropium [place] 2 puff 06/24/20 11:40 06/27/20 08:26 Ipratropium Oral Inhaler INH 2 puff QIDPRN PRN Administration Wheezing Levothyroxine Sodium 75 mcg 06/25/20 06:00 06/27/20 05:46 Levothyroxine Sodium 75 Mcg Tab PO 75 mcg 0600 RONY Administration Mirtazapine 15 mg 06/24/20 21:00 06/26/20 21:06 Mirtazapine 30 Mg Soltab PO 15 mg HS RONY Administration Prazosin HCl 1 mg 06/24/20 21:00 06/26/20 21:08 Prazosin Hcl 1 Mg Cap PO 1 mg HS RONY Administration Pregabalin 150 mg 06/24/20 21:00 06/27/20 08:24 Pregabalin 75 Mg Cap PO 150 mg BID RONY Administration Primidone 50 mg 06/25/20 15:00 06/27/20 14:10 Primidone 50 Mg Tab PO 50 mg TID RONY Administration Ropinirole HCl 1 mg 06/24/20 21:00 06/26/20 21:03 Ropinirole Hcl 1 Mg Tab PO 1 mg HS RONY Administration Spironolactone 25 mg 06/25/20 09:00 06/27/20 08:25 Spironolactone 25 Mg Tab PO 25 mg DAILY RONY Administration Tamsulosin HCl 0.4 mg 06/24/20 21:00 06/26/20 21:07 Tamsulosin Hcl 0.4 Mg Cap PO 0.4 mg HS RONY Administration Zinc Sulfate 220 mg 06/25/20 09:00 06/27/20 08:25 Zinc Sulfate 220 Mg Cap PO 220 mg DAILY RONY Administration - Exam General Appearance: awake alert Neck: supple, symmetric Heart: RRR Respiratory: CTAB Gastrointestinal: soft, non-tender Skin: no rashes Psychiatric: normal affect, normal behavior Hosp A/P (1) Acute respiratory failure with hypoxia Code(s): J96.01 - ACUTE RESPIRATORY FAILURE WITH HYPOXIA Status: Acute (2) Pneumonia due to COVID-19 virus Code(s): U07.1 - COVID-19; J12.89 - OTHER VIRAL PNEUMONIA Status: Acute (3) COPD exacerbation Code(s): J44.1 - CHRONIC OBSTRUCTIVE PULMONARY DISEASE W (ACUTE) EXACERBATION Status: Acute (4) Dementia Code(s): F03.90 - UNSPECIFIED DEMENTIA WITHOUT BEHAVIORAL DISTURBANCE Status: Chronic (5) Elevated troponin Code(s): R77.8 - OTHER SPECIFIED ABNORMALITIES OF PLASMA PROTEINS Status: Res olved (6) Acute kidney injury Code(s): N17.9 - ACUTE KIDNEY FAILURE, UNSPECIFIED Status: Resolved - Plan - Plan Patient is clinically improving. Continue remdesivir, dexamethasone, vitamin C and zinc. Final dose of remdesivir is tomorrow. Patient may need home oxygen. Likely home in 24 to 48 hours.
[2020-06-27] MEDS: rOPINIRole HCl 1 MG TAB PO SCH (21:55)
[2020-06-27] MEDS: Prazosin HCl 1 MG CAP PO SCH (21:55)
[2020-06-27] MEDS: Atorvastatin Calcium 20 MG TAB PO SCH (21:56)
[2020-06-27] MEDS: Tamsulosin HCl 0.4 MG CAP PO SCH (21:56)
[2020-06-27] MEDS: Mirtazapine 30 MG Soltab PO SCH (21:58)
[2020-06-28] MEDS: Levothyroxine Sodium 75 MCG TAB PO SCH (03:57)
[2020-06-28 05:05] LABS: #Basophils 0.1 thou/uL (0.0-0.2); #Lymphocytes 0.5 thou/uL (1.20-3.40); #Monocytes 0.6 thou/uL (0.11-0.59); #Neutrophils 9.5 thou/uL (1.40-6.50); %Eosinophils 0.2 % (0.0-10.0); %Lymphocytes 4.4 % (21.0-51.0); %Monocytes 5.6 % (0.0-10.0); %Neutrophils 88.8 % (42.0-75.0); Mean Corpuscular HGB CONC 32.7 g/dL (32.0-36.0); Mean Corpuscular Hemoglobin 28.4 pg (27.0-31.0); Mean Corpuscular Volume 86.9 fL (78.0-98.0); Mean Platelet Volume 7.5 fL (7.4-10.4); Platelet Count 361 thou/uL (130-400); RBC Distribution Width 12.4 % (11.5-14.5); Red Blood Cell (RBC) Count 4.56 mill/uL (4.70-6.10); White Blood Cell (WBC) Count 10.7 thou/uL (4.8-10.8)
[2020-06-28 05:27] LABS: ALT (SGPT) 42 U/L (8-55); AST (SGOT) 28 U/L (5-34); Albumin 3.5 g/dL (3.4-4.8); Alkaline Phosphatase 88 U/L (40-110); Anion Gap 13 mmol/L (10-20); BUN (Urea Nitrogen) 28 mg/dL (8.4-25.7); Bilirubin, Total 0.7 mg/dL (0.2-1.2); CRP (Inflammatory) 0.91 mg/dL (= or < 0.5); Calc. Creatinine Clearance 88 mL/min (70-130); Calcium 7.9 mg/dL (7.8-10.44); Carbon Dioxide 26 mmol/L (23-31); Chloride 103 mmol/L (98-107); Globulin 2.7 g/dL (2.4-3.5); Glucose 342 mg/dL (83-110); Potassium 4.6 mmol/L (3.5-5.1); Protein, Total 6.2 g/dL (5.8-8.1); Sodium 137 mmol/L (136-145)
[2020-06-28] MEDS: PROVENTIL INHALER 6.7 G (200 INHALATIONS) INH SCH ×3 (06:14→13:16)
[2020-06-28] MEDS: Enoxaparin Sodium 30 MG/0.3 ML SYRINGE SC SCH (08:17)
[2020-06-28] MEDS: Ascorbic Acid 500 mg Chewable Tablet PO SCH (08:18)
[2020-06-28] MEDS: Famotidine 20 MG TAB PO SCH (08:18)
[2020-06-28] MEDS: Primidone 50 MG TAB PO SCH ×2 (08:18→15:01)
[2020-06-28] MEDS: Spironolactone 25 MG TAB PO SCH (08:19)
[2020-06-28] MEDS: Pregabalin 75 MG CAP PO SCH (08:19)
[2020-06-28] MEDS: Zinc Sulfate 220 MG CAP PO SCH (08:19)
[2020-06-28] MEDS: Furosemide 40 MG TAB PO SCH (08:19)
[2020-06-28] MEDS: FLUoxetine HCl 20 MG CAP PO SCH (08:19)
[2020-06-28] MEDS: Finasteride 5 MG TAB PO SCH (08:19)
[2020-06-28] MEDS: Cholecalciferol 1,000 UNITS (25 MCG) TAB PO SCH (08:19)
[2020-06-28] MEDS: Amiodarone 200 MG TAB PO SCH (08:19)
[2020-06-28] MEDS: Hydrocortisone 1% Cream 30 GM TUBE TOP SCH (08:19)
[2020-06-28] MEDS: Aspirin Chewable 81 MG TAB PO SCH (08:20)
[2020-06-28] MEDS: Ipratropium Oral Inhaler INH PRN (10:25)
--- NOTE | 2020-06-28 11:54 | PDOC.DS.DS ---
Provider - Provider Date of Admission: 06/24/20 10:00 Date of Discharge: 06/28/20 Admitting Provider: Malik Hwang MD Primary Care Physician: Sammie Latham DO Course - Hospital Course Hospital Course: Discharge diagnosis: 1. Acute on chronic hypoxic respiratory failure 2. COVID-19 pneumonia 3. Acute kidney injury 4. COPD exacerbation Hospital course: Patient is a pleasant 75-year-old gentleman who was admitted to the hospital on June 24, 2020 for acute on chronic hypoxic respiratory failure secondary to COVID-19 pneumonia and COPD exacerbation. He was treated with remdesivir, dexamethasone, bronchodilators, vitamin C and zinc and improved clinically. He is being discharged home in a stable condition. Many thanks for allowing me to participate in your patient's care. Please feel free to contact me with any questions or concerns. Discharge destination: Home Total amount of time spent coordinating this discharge: 32 minutes - Labs Lab Results: 06/28/20 04:38 06/28/20 04:38 Abnormal Lab Results - Last 48 hrs 06/27/20 04:40: BUN 27 H 06/27/20 04:40: WBC 12.5 H, RBC 4.43 L, Hgb 12.7 L, Hct 38.7 L, Neutrophils % 86.5 H, Lymphocytes % 6.8 L, Neutrophils # 10.8 H, Lymphocytes # 0.9 L, Monocytes # 0.8 H 06/28/20 04:38: BUN 28 H, C-Reactive Protein 0.91 H 06/28/20 04:38: Lactate Dehydrogenase 337 H 06/28/20 04:38: RBC 4.56 L, Hgb 13.0 L, Hct 39.7 L, Neutrophils % 88.8 H, Lymphocytes % 4.4 L, Neutrophils # 9.5 H, Lymphocytes # 0.5 L, Monocytes # 0.6 H 06/28/20 04:38: D-Dimer 1.02 H Microbiology - Entire Visit 06/24/20 07:58 Venous blood - Left Hand Blood Culture - Final Coagulase Neg Staphylococcus 06/24/20 07:58 Venous blood - Right Arm Blood Culture - Preliminary NO GROWTH AT 48 HOURS - Physical Exam Vitals: Vital Signs (12 hours) Temp Pulse Resp BP Pulse Ox 06/28/20 08:28 97.7 F 58 L 16 140/67 96 06/28/20 04:29 96 06/28/20 04:00 97.1 F L 55 L 28 H 119/58 L 92 L Weight Weight 229 lb 11.2 oz Physical Exam: The patient was seen and examined on the day of discharge. Patient denies chest pain or shortness of breath. Vital signs are stable. S1 and S2 are heard. Lungs are clear to auscultation bilaterally. Problem - Problem (1) Acute respiratory failure with hypoxia Code(s): J96.01 - ACUTE RESPIRATORY FAILURE WITH HYPOXIA Status: Acute (2) Pneumonia due to COVID-19 virus Code(s): U07.1 - COVID-19; J12.89 - OTHER VIRAL PNEUMONIA Status: Acute (3) COPD exacerbation Code(s): J44.1 - CHRONIC OBSTRUCTIVE PULMONARY DISEASE W (ACUTE) EXACERBATION Status: Acute (4) Dementia Code(s): F03.90 - UNSPECIFIED DEMENTIA WITHOUT BEHAVIORAL DISTURBANCE Status: Chronic (5) Elevated troponin Code(s): R77.8 - OTHER SPECIFIED ABNORMALITIES OF PLASMA PROTEINS Status: Resolved (6) Acute kidney injury Code(s): N17.9 - ACUTE KIDNEY FAILURE, UNSPECIFIED Status: Resolved Plan - Discharge Medications Prescriptions: Dexamethasone 6 mg PO DAILY #5 tablet Ascorbic Acid [Vitamin C] 1,000 mg PO DAILY #5 tablet Zinc Sulfate [Zinc-220] 220 mg PO DAILY #5 capsule Home Medications: Medication Instructions Recorded Confirmed Type Ipratropium-Albuterol [Combivent] 2 puff INH QID PRN 03/17/14 06/24/20 History Albuterol Sulfate [Proair 90 mcg IH Q6H PRN 02/20/19 06/24/20 History Respiclick] Aspirin Chewable [Aspirin Chewable 81 mg PO DAILY 02/20/19 06/24/20 History Tablet] Fluocinolone Acetonide 0 gm TOP BID PRN 02/20/19 06/24/20 History [Fluocinolone 0.01% Cream] Amiodarone [Cordarone] 200 mg PO BID 06/24/20 06/24/20 History Atorvastatin Calcium [Lipitor] 20 mg PO HS 06/24/20 06/24/20 History Cholecalciferol (Vitamin D3) 1,000 unit PO DAILY 06/24/20 06/24/20 History [Vitamin D3] Desonide [Desonide 0.05% Cream] 1 applic TOP BID 06/24/20 06/24/20 History Diltiazem HCl [Diltiazem 12Hr ER] 180 mg PO DAILY 06/24/20 06/24/20 History FLUoxetine HCl [Prozac] 20 mg PO DAILY 06/24/20 06/24/20 History Finasteride 5 mg PO DAILY 06/24/20 06/24/20 History Furosemide [Lasix] 40 mg PO DAILY 06/24/20 06/24/20 History Levothyroxine Sodium 75 mcg PO 0600 06/24/20 06/24/20 History [Levothyroxine] Lisinopril [Zestril] 10 mg PO DAILY 06/24/20 06/24/20 History Melatonin 10 mg PO HS PRN 06/24/20 06/24/20 History Mirtazapine 15 mg PO HS 06/24/20 06/24/20 History Potassium Gluconate [Potassium] 99 mg PO DAILY 06/24/20 06/24/20 History Prazosin HCl [Minipress] 1 mg PO HS 06/24/20 06/24/20 History Pregabalin [Lyrica] 150 mg PO BID 06/24/20 06/24/20 History Primidone [Mysoline] 50 mg PO TID 06/24/20 06/24/20 History Sodium Fluoride [PreviDent Paste] 1 applic DT HS 06/24/20 06/24/20 History Spironolactone [Aldactone] 25 mg PO DAILY 06/24/20 06/24/20 History Tamsulosin HCl [Flomax] 0.4 mg PO HS 06/24/20 06/24/20 History rOPINIRole HCl [Ropinirole HCl] 1 mg PO HS 06/24/20 06/24/20 History Ascorbic Acid [Vitamin C] 1,000 mg PO DAILY #5 tablet 06/28/20 Rx Dexamethasone 6 mg PO DAILY #5 tablet 06/28/20 Rx Zinc Sulfate [Zinc-220] 220 mg PO DAILY #5 capsule 06/28/20 Rx Allergies: nitrofurantoin Allergy (Unknown, Verified 06/24/20 12:45) PT UNSURE; REMAINS IN MEDICAL RECORD oxybutynin Allergy (Unknown, Verified 06/24/20 12:45) PT UNSURE; REMAINS IN MEDICAL RECORD penicillin G Allergy (Verified 06/24/20 12:45) Anaphylaxis PER PT - Discharge Instructions Discharge Instructions:: Check your oxygen saturations with pulse oximeter and seek medical attention for oxygen saturation less than 90%. - Follow up Plan Referrals: JOSSY LAYTON MD [MD Not on Staff] - 3 Days ([facility] DA[facility].) Disposition: HOME Quality - Care Measures CORE MEASURES:: N/A
[2020-06-28] MEDS: Dexamethasone 4 mg/ml Vial SLOW IVP SCH (13:14)
[2020-06-28] MEDS: REMDESIVIR (EUA) 100 MG in Sodium Chloride 0.9% 250 ML 230 ML IV SCH (15:00)
[2020-06-28 15:23] VITALS: BP 120/59; TEMP 97.7
--- NOTE | 2020-06-30 05:37 | PQF ---
CLINICAL DOCUMENTATION CLARIFICATION FORM: Dear : Malik Hwang Date / Time: 06/30/20536 Please exercise your independent, professional judgment in responding to the clarification form. Clinical indicators are provided on the bottom of this form for your review Please check appropriate box(es): [ ] Sepsis due to Covid Pneumonia [ x ] Severe sepsis due to Covid Pneumonia with Acute Respiratory Failure [ ] Septic Shock [ ] Localized infection without sepsis [ ] Other diagnosis, please specify [ ] Unable to determine In addition, please specify: Present on Admission (POA): [ x ] Yes [ ] No [ ] Unable to determine Physician Signature: Date/Time: For continuity of documentation, please document condition throughout progress notes and discharge summary. Thank You To be completed by CDI/Coding staff for physician review: Present Clinical Indicators - Signs / Symptoms / Labs Results and Location in Medical Record [x] Lactic acid 1.5, WBC 85; 13.7, Neutrophils 79.0; 88.5, Plt count 237;301 Laboratory 06/24-06/26 [x] Blood culture: no growth in 5 days Microbiology 06/24 [x] Chest X-ray: New faint, mild infiltrates suggestive of early Covid Pneumonia Imaging Dr [place]don 06/24 [x] BP 97/52; 96/54; 95/53, Pulse 73; 68; 67. Resp 18; 27; 22. Temp 98.0, 99 Vital signs 06/24 [x] Covid Pneumonia H&P p1 06/24 Dr Hwang [x] ANTON H&P p5 06/24 Dr Hwang [x] Acute respiratory failure H&P p5 06/24 Dr Hwang Present Risk Factors Results and Location in Medical Record [x] 75 year-old Male H&P p1 06/24 Dr Hwang [x] Covid Pneumonia H&P p1 06/24 Dr Hwang [x] COPD H&P p1 06/24 Dr Hwang [x] Alzheimer disease H&P p1 06/24 Dr Hwang Present Treatments Results and Location in Medical Record [x] IVF NS 1L SEP 04 [x] IV Remdesivir 200 mg SEP 04 [x] Oxygen 4L Respiratory panel [x] BiPap Respiratory panel CDS/Bobbin Fixer Signature: Lois Pickens Phone #: [phone] Date/Time: 06/30/20536 This is a permanent part of the Medical Record [facility]
== END 2020-06-28 17:50 | disposition home or self-care (01) | DRG 871 ==
LOC: ERS 07:23 → 2SW 10:00
PROVIDERS: ADMIT Internal Medicine; ATTEND Internal Medicine
PROC: XW033E5 Introduction of Remdesivir Anti-infective into Peripheral Vein, Percutaneous Approach, New Technology Group 5 (ICD-10-PCS; principal; 2020-06-24)
PROC: 5A09357 Assistance with Respiratory Ventilation, Less than 24 Consecutive Hours, Continuous Positive Airway Pressure (ICD-10-PCS; 2020-06-24)
DX: A41.89 Other specified sepsis (principal); U07.1 COVID-19; J96.21 Acute and chronic respiratory failure with hypoxia; J12.82 Pneumonia due to coronavirus disease 2019; J44.0 Chronic obstructive pulmonary disease with (acute) lower respiratory infection; J44.1 Chronic obstructive pulmonary disease with (acute) exacerbation; N17.9 Acute kidney failure, unspecified; R65.20 Severe sepsis without septic shock; G30.9 Alzheimer's disease, unspecified; F02.80 Dementia in other diseases classified elsewhere, unspecified severity, without behavioral disturbance, psychotic disturbance, mood disturbance, and anxiety; F32.9 Major depressive disorder, single episode, unspecified; F43.10 Post-traumatic stress disorder, unspecified; E78.5 Hyperlipidemia, unspecified; R77.8 Other specified abnormalities of plasma proteins; Z85.821 Personal history of Merkel cell carcinoma; Z92.3 Personal history of irradiation; Z79.899 Other long term (current) drug therapy; Z79.82 Long term (current) use of aspirin; Z79.51 Long term (current) use of inhaled steroids; G62.9 Polyneuropathy, unspecified; I25.10 Atherosclerotic heart disease of native coronary artery without angina pectoris; Z95.1 Presence of aortocoronary bypass graft
CPT/HCPCS: 36415; 36600; 71045; 71275; 80053; 82553; 82728; 82805; 83605; 83615; 83880; 84484; 85025; 85379; 86140; 87040; 87149; 93005; 94660; 96360; J1100; J1650; J7050

== ENCOUNTER 2022-09-28 10:59 | Inpatient (IN) | payer MEDICARE ==
[2022-09-28] MEDS ORDERED: Aspirin Chewable 81 MG TAB ONE (11:57)
[2022-09-28] MEDS ORDERED: Magnesium 2 GM/50 ML BAG (IN WATER) ONE (11:57)
[2022-09-28 12:03] LABS: #Eosinphils 0.3 thou/uL (0.0-0.7); #Lymphocytes 1.1 thou/uL (1.20-3.40); #Monocytes 0.4 thou/uL (0.11-0.59); %Basophils 0.1 % (0.0-1.0); %Eosinophils 2.2 % (0.0-10.0); %Lymphocytes 9.5 % (21.0-51.0); %Monocytes 3.3 % (0.0-10.0); %Neutrophils 84.9 % (42.0-75.0); Hemoglobin 14.4 g/dL (14.0-18.0); Mean Corpuscular HGB CONC 32.5 g/dL (32.0-36.0); Mean Corpuscular Hemoglobin 29.6 pg (27.0-31.0); Mean Platelet Volume 7.1 fL (7.4-10.4); Platelet Count 256 10x3/uL (130-400); RBC Distribution Width 13.1 % (11.5-14.5); Red Blood Cell (RBC) Count 4.86 mill/uL (4.70-6.10); White Blood Cell (WBC) Count 11.7 10x3/uL (4.8-10.8)
[2022-09-28 12:14] LABS: ALT (SGPT) 36 U/L (8-55); AST (SGOT) 25 U/L (5-34); Albumin 3.6 g/dL (3.4-4.8); Alkaline Phosphatase 111 U/L (40-110); Anion Gap 11 mmol/L (10-20); BUN (Urea Nitrogen) 23 mg/dL (8.4-25.7); Bilirubin, Total 0.3 mg/dL (0.2-1.2); CK (CPK) 37 U/L (30-200); Calc. Creatinine Clearance 0 mL/min (70-130); Calcium 8.9 mg/dL (7.8-10.44); Carbon Dioxide 28 mmol/L (23-31); Chloride 106 mmol/L (98-107); Estimated GFR 89; Globulin 3.3 g/dL (2.4-3.5); Glucose 131 mg/dL (83-110); Potassium 4.1 mmol/L (3.5-5.1); Protein, Total 6.9 g/dL (5.8-8.1); Sodium 141 mmol/L (136-145)
[2022-09-28 14:39] LABS: SARS-CoV-2 NAA Rapid Test Not Detected (NotDetected)
[2022-09-28 15:44] LABS: Troponin I Less than 0.010 ng/mL (< 0.028)
[2022-09-28] MEDS ORDERED: Ondansetron PF 4 MG/2 ML Vial IVP PRN (16:13)
[2022-09-28] MEDS ORDERED: Dextrose 50% Abboject 50 ML SYRINGE SLOW IVP PRN (16:13)
[2022-09-28] MEDS ORDERED: HumaLOG 300 UNITS/3 ML VIAL SC PRN ×2 (16:13)
[2022-09-28] MEDS ORDERED: Dextrose 5% in Water 1,000 ML IV PRN (16:13)
[2022-09-28] MEDS ORDERED: Ondansetron ODT 4 MG TAB PO PRN (16:13)
[2022-09-28] MEDS ORDERED: Melatonin 3 MG TAB PO PRN (16:22)
[2022-09-28] MEDS ORDERED: Furosemide 20 MG/2 ML VIAL SLOW IVP SCH (16:30)
[2022-09-28] MEDS ORDERED: Azithromycin 500 MG in Sodium Chloride 0.9% 250 ML 250 ML IVPB SCH (17:00)
[2022-09-28] MEDS ORDERED: Furosemide 20 MG/2 ML VIAL ONE (17:00)
[2022-09-28 17:08] LABS: Bilirubin Negative (Negative); Blood, Urine Negative (Negative); Clarity Clear (Clear); Glucose, Urine (Dipstick) Greater than 1000 mg/dL (Negative); Ketone, Urine Negative (Negative); Leukocyte Negative Leu/uL (Negative); Nitrite Negative (Negative); Protein, Urine (Dipstick) Negative (Neg-Trace); Specific Gravity, Urine 1.038 (1.002-1.036); Urobilinogen Normal mg/dL (Less than 2); pH, Urine 5.5 (5.0-9.0)
[2022-09-28 17:47] VITALS: BMI 32.6
[2022-09-28] MEDS: methylPREDNISolone Sod Succ 40 MG VIAL IVP SCH ×2 (18:12→23:00)
[2022-09-28 18:35] LABS: Troponin I Less than 0.010 ng/mL (< 0.028)
[2022-09-28] MEDS: Ipratropium Bromide 2.5 ml Neb NEB SCH ×2 (18:39→22:32)
[2022-09-28] MEDS: Mometasone 100 MCG/PUFF (1 INHALER) INH SCH (18:40)
[2022-09-28] MEDS: Pregabalin 75 MG CAP PO SCH (20:52)
[2022-09-28] MEDS: Tamsulosin HCl 0.4 MG CAP PO SCH (20:53)
[2022-09-28] MEDS: Famotidine 20 MG TAB PO SCH (20:53)
[2022-09-28] MEDS: Atorvastatin Calcium 40 MG TAB PO SCH (20:53)
[2022-09-28] MEDS ORDERED: Primidone 50 MG TAB PO SCH (22:30)
[2022-09-29 05:04] LABS: #Lymphocytes 0.7 thou/uL (1.20-3.40); #Monocytes 0.1 thou/uL (0.11-0.59); #Neutrophils 11.5 thou/uL (1.40-6.50); %Basophils 0.1 % (0.0-1.0); %Eosinophils 0.1 % (0.0-10.0); %Neutrophils 92.8 % (42.0-75.0); Hemoglobin 14.3 g/dL (14.0-18.0); Mean Corpuscular HGB CONC 32.6 g/dL (32.0-36.0); Mean Corpuscular Hemoglobin 29.9 pg (27.0-31.0); Mean Corpuscular Volume 91.7 fl (78.0-98.0); Mean Platelet Volume 7.3 fL (7.4-10.4); Platelet Count 264 10x3/uL (130-400); RBC Distribution Width 12.9 % (11.5-14.5); Red Blood Cell (RBC) Count 4.77 mill/uL (4.70-6.10); White Blood Cell (WBC) Count 12.4 10x3/uL (4.8-10.8)
[2022-09-29 05:28] LABS: Anion Gap 12 mmol/L (10-20); BUN (Urea Nitrogen) 21 mg/dL (8.4-25.7); Calc. Creatinine Clearance 92 mL/min (70-130); Calcium 8.8 mg/dL (7.8-10.44); Carbon Dioxide 29 mmol/L (23-31); Chloride 104 mmol/L (98-107); Estimated GFR 90; Glucose 136 mg/dL (83-110); Sodium 140 mmol/L (136-145)
[2022-09-29] MEDS: methylPREDNISolone Sod Succ 40 MG VIAL IVP SCH ×3 (05:40→17:44)
[2022-09-29] MEDS: Levothyroxine Sodium 75 MCG TAB PO SCH (05:40)
[2022-09-29] MEDS: Furosemide 20 MG/2 ML VIAL SLOW IVP SCH ×2 (05:40→14:51)
[2022-09-29] MEDS: Mometasone 100 MCG/PUFF (1 INHALER) INH SCH ×2 (06:29→19:15)
[2022-09-29] MEDS: Ipratropium Bromide 2.5 ml Neb NEB SCH ×4 (06:35→22:21)
[2022-09-29] MEDS: Primidone 50 MG TAB PO SCH ×3 (08:20→20:25)
[2022-09-29] MEDS: Ezetimibe 10 MG TAB PO SCH (08:21)
[2022-09-29] MEDS: Acetaminophen 500 MG TAB PO PRN (08:21)
[2022-09-29] MEDS: Famotidine 20 MG TAB PO SCH ×2 (08:21→20:24)
[2022-09-29] MEDS: FLUoxetine HCl 20 MG CAP PO SCH (08:21)
[2022-09-29] MEDS: Pregabalin 75 MG CAP PO SCH ×2 (08:22→20:24)
[2022-09-29] MEDS: Aspirin Chewable 81 MG TAB PO SCH (08:22)
[2022-09-29] MEDS: Empagliflozin 25 MG TAB PO SCH (08:22)
[2022-09-29] MEDS: Finasteride 5 MG TAB PO SCH (08:22)
[2022-09-29] MEDS: rOPINIRole HCl 1 MG TAB PO SCH ×3 (12:42→20:25)
[2022-09-29] MEDS: metFORMIN 500 MG TAB PO SCH (16:23)
[2022-09-29] MEDS: Atorvastatin Calcium 40 MG TAB PO SCH (20:24)
[2022-09-29] MEDS: Tamsulosin HCl 0.4 MG CAP PO SCH (20:25)
[2022-09-29] MEDS ORDERED: traZODone HCl 50 MG TAB PO SCH (21:00)
[2022-09-30] MEDS: methylPREDNISolone Sod Succ 40 MG VIAL IVP SCH ×3 (00:04→13:25)
[2022-09-30] MEDS: Acetaminophen 500 MG TAB PO PRN (02:28)
[2022-09-30 04:50] LABS: Hemoglobin 14.8 g/dL (14.0-18.0); Mean Corpuscular HGB CONC 30.8 g/dL (32.0-36.0); Mean Corpuscular Hemoglobin 28.4 pg (27.0-31.0); Mean Corpuscular Volume 92.2 fl (78.0-98.0); Mean Platelet Volume 7.2 fL (7.4-10.4); Platelet Count 355 10x3/uL (130-400); RBC Distribution Width 13.1 % (11.5-14.5); Red Blood Cell (RBC) Count 5.21 mill/uL (4.70-6.10); White Blood Cell (WBC) Count 21.1 10x3/uL (4.8-10.8)
[2022-09-30 05:09] LABS: Anion Gap 15 mmol/L (10-20); BUN (Urea Nitrogen) 28 mg/dL (8.4-25.7); Calc. Creatinine Clearance 77 mL/min (70-130); Calcium 9.3 mg/dL (7.8-10.44); Carbon Dioxide 28 mmol/L (23-31); Chloride 100 mmol/L (98-107); Estimated GFR 78; Glucose 132 mg/dL (83-110); Sodium 139 mmol/L (136-145)
[2022-09-30 05:28] LABS: Band 3 % (5-11); Lymphocytes 2 % (21-51); MDiff Complete? YES; Metamyelocyte 1 % (0-0); Monocytes 1 % (0-10); Neutrophil 93 % (42-75); Ovalocytes SLIGHT = 2-5 cells (100X) (0-1/hpf); Platelet Morphology Comment Appears Adequate; Polychromasia SLIGHT = 2-3 cells (100X) (0-2/hpf)
[2022-09-30] MEDS: Furosemide 20 MG/2 ML VIAL SLOW IVP SCH (05:38)
[2022-09-30] MEDS: Levothyroxine Sodium 75 MCG TAB PO SCH (05:38)
[2022-09-30] MEDS: Mometasone 100 MCG/PUFF (1 INHALER) INH SCH (07:20)
[2022-09-30] MEDS: Ipratropium Bromide 2.5 ml Neb NEB SCH (07:30)
[2022-09-30] MEDS: Primidone 50 MG TAB PO SCH (08:20)
[2022-09-30] MEDS: Finasteride 5 MG TAB PO SCH (08:20)
[2022-09-30] MEDS: Ezetimibe 10 MG TAB PO SCH (08:20)
[2022-09-30] MEDS: rOPINIRole HCl 1 MG TAB PO SCH (08:20)
[2022-09-30] MEDS: Aspirin Chewable 81 MG TAB PO SCH (08:21)
[2022-09-30] MEDS: Famotidine 20 MG TAB PO SCH (08:21)
[2022-09-30] MEDS: metFORMIN 500 MG TAB PO SCH (08:21)
[2022-09-30] MEDS: Pregabalin 75 MG CAP PO SCH (08:22)
[2022-09-30] MEDS: FLUoxetine HCl 20 MG CAP PO SCH (08:23)
[2022-09-30] MEDS: Empagliflozin 25 MG TAB PO SCH (08:24)
[2022-09-30] MEDS ORDERED: Azithromycin 250 MG TAB PO SCH (09:00)
[2022-09-30] MEDS ORDERED: Non-Formulary Item 1 EACH (Potassium Citrate [Potassium] 99 MG Capsule) PO SCH (09:00)
[2022-09-30] MEDS ORDERED: Potassium Chloride 10 MEQ TAB PO SCH (09:00)
[2022-09-30 11:54] VITALS: TEMP 97.3
[2022-09-30 12:40] VITALS: BP 119/59
== END 2022-09-30 12:35 | disposition home or self-care (01) | DRG 291 ==
LOC: ERS 10:59 → ERHOLD 13:10 → OBSVTOIN 16:13 → 2SW 17:28
PROVIDERS: ADMIT Family Medicine; ATTEND Family Medicine
DX: I11.0 Hypertensive heart disease with heart failure (principal); I50.33 Acute on chronic diastolic (congestive) heart failure; J96.21 Acute and chronic respiratory failure with hypoxia; I48.20 Chronic atrial fibrillation, unspecified; J44.1 Chronic obstructive pulmonary disease with (acute) exacerbation; I25.10 Atherosclerotic heart disease of native coronary artery without angina pectoris; E78.5 Hyperlipidemia, unspecified; F32.A Depression, unspecified; F43.10 Post-traumatic stress disorder, unspecified; Z20.822 Contact with and (suspected) exposure to COVID-19; G47.33 Obstructive sleep apnea (adult) (pediatric); E11.42 Type 2 diabetes mellitus with diabetic polyneuropathy; Z88.0 Allergy status to penicillin; Z88.1 Allergy status to other antibiotic agents; Z88.8 Allergy status to other drugs, medicaments and biological substances; Z98.890 Other specified postprocedural states; Z87.891 Personal history of nicotine dependence; Z95.1 Presence of aortocoronary bypass graft
CPT/HCPCS: 36415; 36416; 71045; 80048; 80053; 81003; 82550; 83605; 83880; 84484; 85025; 87040; 87086; 93005; 94640; 94760; 96365; 96367; J0456; J1815; J1940; J1956; J2920; J3475; J7050; J7611

== ENCOUNTER 2023-01-18 19:00 | Outpatient (CLI) | payer MEDICARE | END 2023-01-18 19:01 | disposition home or self-care (01) | LOC: SLEEPLAB 19:00 | PROVIDERS: ATTEND Internal Medicine | DX: G47.33 Obstructive sleep apnea (adult) (pediatric) (principal); R09.02 Hypoxemia | CPT/HCPCS: 95811 ==